=== PATIENT | male | born 1960 | race Caucasian/White ===

== ENCOUNTER 2022-01-25 12:37 | Outpatient (REF) | payer OTHER, SELFPAY ==
[2022-01-25 14:06] LABS: MANUAL DIFF FLAG NO
[2022-01-25 14:14] LABS: Basophils Percent Auto 0.3 % (0-2); Eosinophils Absolute Auto 0.2 X10*3/uL (0.0-0.4); Eosinophils Percent Auto 2.2 % (0-4); Hematocrit 40.8 % (42.0-52.0); Hemoglobin 12.8 g/dl (14.0-18.0); Imm Gran Abs Auto 0.04 X10*3/uL (0.00-0.03); Imm Gran Pct Auto 0.4 % (0.0-0.4); Lymphocytes Absolute Auto 2.5 X10*3/uL (1.2-4.9); Lymphocytes Percent Auto 24.8 % (20-40); Mean Corpuscular HGB Conc 31.4 g/dl (31.0-36.0); Mean Corpuscular Hemoglobin 27.5 pg (27.0-33.0); Mean Corpuscular Volume 87.7 fL (80.0-98.0); Mean Platelet Volume 13.2 fL (9.4-12.4); Monocytes Absolute Auto 0.6 X10*3/uL (0.1-1.2); Monocytes Percent Auto 5.6 % (2-11); Neutrophils Absolute Auto 6.8 x10*3/uL (2.0-8.3); Neutrophils Percent Auto 66.7 % (45-73); Platelet Count 106 X10*3/uL (160-400); Red Blood Count 4.65 X10*6/uL (4.60-5.80); Red Cell Distribution Width 13.2 % (11.0-16.0); White Blood Count 10.3 X10*3/uL (4.8-10.8)
[2022-01-25 14:21] LABS: Estimated Average Glucose 166 mg/dL; Hemoglobin A1c % 7.4 %
[2022-01-25 14:51] LABS: Alanine Aminotransferase 22 U/L (0-40); Albumin Level 4.1 g/dL (3.5-5.0); Alkaline Phosphatase 70 U/L (39-117); Anion Gap 16 (12-20); Aspartate Amino Transferase 13 U/L (5-37); Bilirubin Total 0.3 mg/dL (0.0-1.0); Blood Urea Nitrogen 16 mg/dL (9-16); Calcium 9.1 mg/dL (8.4-10.2); Carbon Dioxide 23 mmol/L (22-29); Chloride 106 mmol/L (96-108); Cholesterol 79 mg/dL; Estimated Glomerular Filt Rate > 60; Glucose Fasting 162 mg/dL (60-99); HDL Cholesterol 36 mg/dL; LDL Cholesterol Calculated 4 mg/dl; Potassium 4.2 mmol/L (3.3-5.1); Sodium 141 mmol/L (135-145); Total Protein 6.4 g/dL (6.5-8.0); Triglycerides 198 mg/dL
[2022-01-25 15:09] LABS: TSH reflex Free T4 1.22 uIU/mL (0.32-4.0)
[2022-01-25 15:10] LABS: Vitamin B12 255 pg/mL (200-900)
[2022-01-30 14:06] LABS: Vitamin D 25-OH, D2 <4 ng/mL; Vitamin D 25-OH, D3 33 ng/mL; Vitamin D 25-OH, Total 33 ng/mL (30-100)
== END 2022-01-25 12:38 | disposition home or self-care (01) ==
LOC: HO.HMGCLDS 12:37
PROVIDERS: PCP Internal Medicine; Visit Provider Internal Medicine
DX: E11.9 Type 2 diabetes mellitus without complications (principal); E66.09 Other obesity due to excess calories; E78.9 Disorder of lipoprotein metabolism, unspecified; F41.1 Generalized anxiety disorder; I10 Essential (primary) hypertension; Z76.89 Persons encountering health services in other specified circumstances
CPT/HCPCS: 36415; 80053; 80061; 82306; 82607; 83036; 84443; 85025

== ENCOUNTER 2022-07-28 08:40 | Outpatient (REF) | payer OTHER, SELFPAY ==
[2022-07-28 11:13] LABS: MANUAL DIFF FLAG NO
[2022-07-28 11:26] LABS: Basophils Percent Auto 0.2 % (0-2); Eosinophils Absolute Auto 0.3 X10*3/uL (0.0-0.4); Eosinophils Percent Auto 3.2 % (0-4); Hematocrit 45.2 % (42.0-52.0); Hemoglobin 14.6 g/dl (14.0-18.0); Imm Gran Abs Auto 0.03 X10*3/uL (0.00-0.03); Imm Gran Pct Auto 0.3 % (0.0-0.4); Lymphocytes Percent Auto 33.3 % (20-40); Mean Corpuscular HGB Conc 32.3 g/dl (31.0-36.0); Mean Corpuscular Hemoglobin 27.9 pg (27.0-33.0); Mean Corpuscular Volume 86.4 fL (80.0-98.0); Mean Platelet Volume 12.6 fL (9.4-12.4); Monocytes Absolute Auto 0.5 X10*3/uL (0.1-1.2); Monocytes Percent Auto 5.3 % (2-11); Neutrophils Absolute Auto 5.2 x10*3/uL (2.0-8.3); Neutrophils Percent Auto 57.7 % (45-73); Platelet Count 206 X10*3/uL (160-400); Red Blood Count 5.23 X10*6/uL (4.60-5.80); Red Cell Distribution Width 15.9 % (11.0-16.0); White Blood Count 9.1 X10*3/uL (4.8-10.8)
[2022-07-28 11:33] LABS: Estimated Average Glucose 146 mg/dL; Hemoglobin A1c % 6.7 %
[2022-07-28 11:46] LABS: Alanine Aminotransferase 23 U/L (0-40); Albumin Level 4.4 g/dL (3.5-5.0); Alkaline Phosphatase 73 U/L (39-117); Anion Gap 15 (12-20); Aspartate Amino Transferase 15 U/L (5-37); Bilirubin Total 0.6 mg/dL (0.0-1.0); Blood Urea Nitrogen 13 mg/dL (9-16); Calcium 9.6 mg/dL (8.4-10.2); Carbon Dioxide 25 mmol/L (22-29); Chloride 103 mmol/L (96-108); Estimated Glomerular Filt Rate > 60; Glucose Random 96 mg/dL (60-115); Potassium 3.9 mmol/L (3.3-5.1); Sodium 139 mmol/L (135-145); Total Protein 6.5 g/dL (6.5-8.0)
== END 2022-07-28 08:41 | disposition home or self-care (01) ==
LOC: HO.HMGCLDS 08:40
PROVIDERS: PCP Internal Medicine; Visit Provider Internal Medicine
DX: I10 Essential (primary) hypertension (principal); F41.1 Generalized anxiety disorder; E11.9 Type 2 diabetes mellitus without complications; E78.9 Disorder of lipoprotein metabolism, unspecified; E66.09 Other obesity due to excess calories
CPT/HCPCS: 36415; 80053; 83036; 85025

== ENCOUNTER → 2022-09-04 07:56 | Outpatient (BNVA) | payer OTHER, MEDICAID, SELFPAY | PROVIDERS: PCP Internal Medicine; Referring Provider Internal Medicine; Visit Provider Internal Medicine | DX: I48.91 Unspecified atrial fibrillation (principal); I10 Essential (primary) hypertension | CPT/HCPCS: 99202 ==

== ENCOUNTER 2022-09-14 08:16 | Outpatient (REF) | payer OTHER, MEDICAID, SELFPAY ==
--- NOTE | ~2022-09-14 | XR_ITS ---
EXAMINATION: XR SHOULDER, RIGHT CLINICAL INFORMATION: Pain. COMPARISON: None available. TECHNIQUE: Four views of the right shoulder. FINDINGS: No acute fractures or subluxation. Moderate productive changes in relation to the AC joint, coracoid process and glenoid. Mild joint space narrowing of the glenohumeral and acromioclavicular joints. Included right-sided ribs and right lung are within normal limits. XR/XR shoulder RT min 2V IMPRESSION: 1. No acute fractures or subluxation. 2. 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
== END 2022-09-14 08:17 | disposition home or self-care (01) ==
LOC: HO.HMGCX 08:16
PROVIDERS: PCP Internal Medicine; Visit Provider Internal Medicine
DX: M25.511 Pain in right shoulder (principal)
CPT/HCPCS: 73030

== ENCOUNTER → 2022-09-22 07:33 | Outpatient (REF) | payer OTHER, MEDICAID, SELFPAY ==
--- NOTE | 2022-09-22 07:37 | HM_ITS ---
Conclusion: 1. Patient was monitored for total period of 3 days and 6 hours 2. Baseline was atrial fibrillation with average heart of 73 beats per minute with good rate control 3. No significant pauses noted 4. Occasional PVCs noted with total burden of 0.7% 5. No patient reported symptoms MTDD
--- NOTE | 2022-09-22 07:37 | CA_ITS ---
Transthoracic Echocardiogram Patient (Last, First, Middle): Mario Baldwin, Gender: Male Date of : 1960 Age: 62 Procedure Date: 09/22/2022 Procedure Type: Transthoracic Echocardiogram Location: OP Height: 177.8 cm Weight: 90.72 kg BSA: 2.09 m2 Heart Rate: bpm BP: 110 / 60 mmHg Link Knitting Machine Operator: TO Referring MD: Albert Wallace MD Symptoms: I48.91 - Unspecified atrial fibrillation Study Quality: Fair ECG Rhythm: Atrial Fibrillation Conclusions: - The left ventricular systolic function is normal. The visually estimated ejection fraction is between 60-65%. - There is moderate septal asymmetric hypertrophy. - Left atrium mild to moderately dilated. - There is mild calcification of the aortic valve. - No obvious valvular pathology seen on this study. - Mild pulmonary hypertension is present. Findings Left Ventricle Normal left ventricular cavity size. There is mildly increased left ventricular wall thickness. The left ventricular systolic function is normal. The visually estimated ejection fraction is between 60-65%. There is no evidence of regional wall motion abnormalities. Diastolic function is indeterminate on the basis of available data. There is moderate septal asymmetric hypertrophy. Right Ventricle Normal right ventricular cavity size and systolic function. Atria Left atrium mild to moderately dilated. The right atrium is normal in size. Aortic Valve There is a normal trileaflet aortic valve. There is mild calcification of the aortic valve. There is no aortic valve stenosis. There is no aortic valve regurgitation. Mitral Valve There is mild anterior mitral leaflet thickening. There is trace mitral valve regurgitation. There is no mitral valve stenosis. Pulmonic Valve There is trace pulmonic valve regurgitation. Tricuspid Valve There is mild tricuspid valve regurgitation. Mild pulmonary hypertension is present. Great Vessels The asc aorta is normal in size. Small plaque is seen in the sino tubular ridge. Venous The inferior vena cava is mildly dilated and collapses greater than 50% with inspiration. Pericardium/Pleural There is no evidence of pericardial effusion. Prior Study Comparison No prior study available for comparison. Recommendations, Care & Conclusions No obvious valvular pathology seen on this study. Measurements 2D Linear Measurements IVSd: 1.42 0.6-0.9/0.6-1.0 cm LVIDd: 4.65 3.9-5.3/4.2-5.9 cm LVIDd Index: 2.22 2.4-3.2/2.2-3.1 cm/m2 LVIDs: 2.90 2.0-3.6 cm LVPWd: 1.16 0.7-1.1 cm LA Diam: 4.40 2.7-3.8/3.0-4.0 cm LAIDs Index: 2.11 1.5-2.3 cm/m2 LV Mass: 288.48 67-162/88-224 g LV Mass Index: 138.03 43-95/49-115 g/m2 LVOT Diam: 2.20 3.0+(-)1.3 cm 2D Systolic Function EF 4C: 67.40 >55% EF 2C: 54.90 >55% EF BiP: 63.20 >55% Mitral Valve MV Pk E: 1.14 MV Decel Time: 196.00 E'Lateral: 14.50 E'Medial: 10.20 E/E' Med: 11.20 E/E' Lat: 7.90 PHT: 57.00 MVA PHT: 3.86 Decel [place]: 5.81 Aortic Valve AoV Pk Chris: 1.53 AoV Pk Grad: 9.00 LVOT LVOT Pk Chris: 0.80 LVOT Mn Chris: 0.55 LVOT VTI: 0.16 LVOT Pk Grad: 3.00 LVOT Mn Grad: 1.00 LVOT Diam: 2.20 LVOT Area: 3.80 Diastolic Function MV Pk E: 1.14 E'Medial: 10.20 E/E' Med: 11.20 E' Laterial: 14.50 E/E' Lat: 7.90 Right Ventricle TAPSE (mm): 18.00 TVS' Chris: 11.90 Tricuspid Valve TR Pk Chris: 2.89 TR Pk Grad: 33.00 RA Press: 8.00 RVSP: 41.00 Great Vessels Aorta Sinus of Valsalva: 3.12 2.0-3.[address] [place]: 2.32 1.7-3.4 cm Ao Asc: 3.50 2.1-3.4 cm Updated in Other Vendor System with Status of Final Albert Wallace MD electronically signed on 09/25/2022 10:14:22 AM with status of Final
== END ==
LOC: HO.CARD 07:33
PROVIDERS: PCP Internal Medicine; Visit Provider Internal Medicine
DX: I48.91 Unspecified atrial fibrillation (principal)
CPT/HCPCS: 93242; 93306

== ENCOUNTER → 2022-10-23 12:46 | Outpatient (BNVA) | payer OTHER, MEDICAID, SELFPAY | PROVIDERS: PCP Internal Medicine; Visit Provider Physician Assistant | DX: M75.81 Other shoulder lesions, right shoulder (principal) | CPT/HCPCS: 20610; J1040 ==

== ENCOUNTER 2022-11-15 07:21 | Outpatient (RCR) | payer OTHER, MEDICAID, SELFPAY ==
[2022-11-15 07:46] VITALS: BP 113/63; PULSE 79; O2SAT 95
--- NOTE | 2022-11-15 13:32 | MHC.PT.EP ---
[facility] [place] Office [place] Office [place] Office [address] [place] [address] [address] [phone] F: [phone] F: [phone] F: [phone] F: [phone] Physical Therapy Plan of Care Date of Evaluation: Date of Surgery: Diagnosis: Rt SHOULDER LESION Assessment: 62 YO MALE REF TO PT W Rt SHOULDER PAIN ONSET APPROX 3 MONTHS AGO, PROGRESSIVE, AFTER LIFTING A HAY BALE INTO HIS HORSE ORDONEZ. THE Pt IS Rt HAND DOMINANT. HE HAS LIMITED ROM IN Rt SH, STRENGTH DEFICITS IN Rt RC/SCAP MM W ATROPHY Rt POST RC, (+) TTP Rt ANT GH AND PARASCAP MM, AND PAIN IN RT SH JT. FUNCTIONALLY, HE HAS DIFFIC SLEEPING, LIFTING > SH HEIGHT FLEX WELL ABD, CARRYING, OR REPETITIVE TASKS REQ INCR UEs EFFORT. HE HAS Rt SH (+) NEER'S AND (+) LEIVA SAAD SIGNS. THE Pt WOULD BENEFIT FROM PT TO ADDRESS THE ABOVE FINDINGS , MONITOR PROGRESS AND SXS, AND DEV A HEP/ SELF-SX MGMT PROGRAM. Frequency and Duration: The patient will be seen 2 x WK x 5 WKS Short Term Goals: *DECREASE Rt SH PAIN TO 2-3/10 W REG ADLs *Pt INDEP SELF-CORRECT POSTURE AND BODY MECH-> FARM TASKS *Pt DISPLAY WFL AROM Rt SH, W (-) NEER'S SIGN Rt SH Delicatessen Clerk Goals: *Pt INDEP HEP PROGR AND SELF-SX MGMT STRATEGIES FOR Rt SH INJURY Pt RESUME REG ADLs TO RAMESH EVIDENT IN IMPROVED SPADI ( AT EVAL 89 /130 ) *Pt INCR Rt POST RC/ SCAP STRENGTH BY AT LEAST 1 GRADE Treatment Plan: Modalities to reduce pain, spasms and effusion. Manual therapy to restore motion and function. Therapeutic exercise to improve strength and flexibility. Neuromuscular re-education for posture and balance. Therapeutic activities to return to functional activities of daily living. Electronically signed by: RENEE ROSAS,PT Please sign and return to therapist. Thank you for your referral.
--- NOTE | 2022-11-30 07:45 | MHC.PT.DC ---
[facility] [place] Office [place] Office [place] Office [address] [facility] [phone] F: [phone] F: [phone] F: [phone] F: [phone] Physical Therapy Discharge Report Diagnosis: Rt SHOULDER LESION Date of Surgery: Date of Evaluation: 11/15/22 Date of Discharge: 11/30/22 Treatments to Date: 1 Cancellations to Date: 1 No Shows to Date: 3 Discharge Status: Patient Elected to Stop Visit Non-compliance Discharge Summary: THE Pt APPEARED TO BE A GOOD CANDIDATE FOR SKILLED PT AT THE [facility], HOWEVER, HE DID NOT ATTEND OR CANCEL ANY FOLLOWING SCHED APPTS AND IS THUS D/C THIS DATE PER OUT PT DEPT ATTENDANCE POLICY. THE Pt DID NOT RESPOND TO ATTEMPTS TO CONTACT HIM. Electronically signed by: RENEE ROSAS,PT Please sign and return to therapist. Thank you for your referral.
== END 2022-11-30 07:45 | disposition home or self-care (01) ==
LOC: HO.PT 07:21
PROVIDERS: PCP Internal Medicine; Visit Provider Physician Assistant
DX: M75.81 Other shoulder lesions, right shoulder (principal)
CPT/HCPCS: 97162; 97530

== ENCOUNTER 2022-11-22 08:16 | Outpatient (AMB) | payer OTHER, MEDICAID, SELFPAY ==
[2022-11-22 08:21] VITALS: BP 112/66; PULSE 85; O2SAT 97; BMI 28.4
--- NOTE | 2022-11-22 08:21 | MHC.PC.OV ---
Vital Signs 11/22/22 08:21 Height 5 ft 9 in Weight 192 lb BMI 28.4 BP 112/66 Blood Pressure Location Rt brachial Position Sitting Pulse 85 Pulse Source Pulse Oximeter Pulse Oximetry (%) 97 Oxygen Delivery Method Room Air Intake Visit Reasons: 3 month follow up HTN Allergies varenicline [From Chantix] Allergy (Intermediate, Verified 11/22/22 08:21) mood swings asprin Allergy (Severe, Uncoded 10/23/22 13:11) Nausea Medication List - Last Reconciled 11/22/22 by Mali Garcia MD albuterol sulfate 0.63 mg (3 mL) inhalation QID PRN 30 days amlodipine 10 mg PO DAILY apixaban (Eliquis) 5 mg PO BID 90 days buspirone 15 mg PO QID diclofenac sodium 75 mg PO BID 10 days hydrochlorothiazide 25 mg PO DAILY 90 days lisinopril 30 mg PO DAILY 90 days metformin 1,000 mg PO BID 90 days rosuvastatin 10 mg PO DAILY 90 days trazodone mg PO Tobacco use date assessed: 11/22/22 Dental Screening Dental Screen Date: 11/22/22 Did you have a dental visit in the last 12 months?: No Did you have a dental problem in the last 6 months where you did not have access to dental care?: No Was dental information given to patient?: No HPI 3 month follow up HTN HPI Details Patient is a 62-year-old gentleman came in today for his regular follow-up appoint he is now seeing director of safety and security is appointment is coming up December 05. Patient has developed atrial fibrillation he is taking Eliquis Blood pressure is stable he is to continue amlodipine 10 mg along with hydrochlorothiazide 25 mg and lisinopril 30 mg. Diabetes mellitus: Hemoglobin A1c is 5.4 today patient is on metformin 1 g b.i.d.. Lipid disorder: Continue rosuvastatin 10 mg no side effects patient is to do labs for next visit Difficulty sleeping at night, patient is on trazodone 100 mg which is helping him Anxiety is stable with buspirone 15 mg up to 3 times a day. Right shoulder has improved patient has seen registration scheduling specialist was given cortisone injection and has gone through physical therapy, he is to continue physical therapy at home. Continue to smoke he is wheezing today patient says that he has updraft machine at home. I also have added maintenance inhaler today patient has taken Symbicort in the past but it was too expensive for him to afford as his insurance company did not cover it. I have sent a different inhaler this time. He is to start taking that q.12 and rinse his mouth after Follow-up 3 months [facility] Medical History Diabetes type 2, controlled Hypertension, essential Surgical History History of hip surgery Family History Mother Cancer Father Cancer Social History Housing: House Patient Tobacco Use Status: Current everyday Tobacco user e-Cigarette/Vaping Use: Never Used service: No Current occupational status: retired Current occupation: right hand dominant Cognitive needs: No Hearing needs: No Vision needs: Yes Questionnaire Thrive Questionnaire Date Thrive assessed: 01/27/22 AUDIT C Alcohol Use Questionnaire (AUDIT-C) 1. How often do you have a drink containing alcohol?: Monthly or less 2. How many drinks containing alcohol do you have on a typical day when you are drinking?: 1 or 2 3. How often do you have six or more drinks on one occasion?: Never Total Score: 1 Score Reviewed/Action Taken: Yes KEYANA-7 AMB Questionnaire KEYANA-7 Date KEYANA - 7 assessed: 01/27/22 Source: Developed by Drs. Derick Thacker, Katie Gibson, David Valenzuela and colleagues, with an educational cristino from [employer]. Review of Systems Const Denies chills and Denies fever(s) ENT Denies epistaxis and Denies nasal discharge Card Denies chest pain Resp Denies hemoptysis GI Denies diarrhea and Denies nausea Skin/Breast Denies rash Neuro Reports no additional complaints Psych Reports no additional complaints Endo Reports no additional complaints Physical exam (Primary Care) Vital Signs: Last Vital Signs Pulse 85 11/22/22 08:21 BP 112/66 11/22/22 08:21 Pulse Ox 97 11/22/22 08:21 Oxygen Delivery Method Room Air 11/22/22 08:21 BMI result Body Mass Index 28.4 Tobacco/Smoking Status: Tobacco use Status Tobacco use date assessed 11/22/22 11/22/22 08:23 Patient Tobacco Use Status Current everyday Tobacco 11/22/22 08:23 e-Cigarette/Vaping Use Never Used 11/22/22 08:23 Thrive Assessment: Date of Thrive Assessment Date Thrive assessed 01/27/22 11/22/22 08:23 Const General: cooperative, comfortable and no acute distress Orientation/consciousness: patient oriented x3 HENMT Head: Yes normocephalic Eyes General: appearance normal, both eyes and all related structures Neck Neck: Yes supple Resp Other: Patient is wheezing bilateral, and coughing with deep breath however able to speak in full sentences. And is in no respiratory distress Effort & Inspection: no stridor Cardio Other: Irregularly irregular Heart sounds: S1 normal heart sound present and S2 normal heart sound present Skin General skin exam: turgor normal Neuro General: patient oriented x3, tone normal and moves all extremities Extrem Right lower extremity: no edema Left lower extremity: no edema Assessment and Plan Assessment & Plan (1) Hypertension, essential: Code(s): I10 - Essential (primary) hypertension (2) Diabetes type 2, controlled: Code(s): E11.9 - Type 2 diabetes mellitus without complications (3) Obesity due to excess calories: Code(s): E66.09 - Other obesity due to excess calories (4) Shoulder pain, right: Code(s): M25.511 - Pain in right shoulder (5) Atrial fibrillation: Code(s): I48.91 - Unspecified atrial fibrillation (6) COPD (chronic obstructive pulmonary disease): Code(s): J44.9 - Chronic obstructive pulmonary disease, unspecified (7) Tobacco use disorder: Code(s): F17.200 - Nicotine dependence, unspecified, uncomplicated Plan Patient is a 62-year-old gentleman came in today for his regular follow-up appoint he is now seeing director of safety and security is appointment is coming up December 05. Patient has developed atrial fibrillation he is taking Eliquis Blood pressure is stable he is to continue amlodipine 10 mg along with hydrochlorothiazide 25 mg and lisinopril 30 mg. Diabetes mellitus: Hemoglobin A1c is 5.4 today patient is on metformin 1 g b.i.d.. Lipid disorder: Continue rosuvastatin 10 mg no side effects patient is to do labs for next visit Difficulty sleeping at night, patient is on trazodone 100 mg which is helping him Anxiety is stable with buspirone 15 mg up to 3 times a day. Right shoulder has improved patient has seen registration scheduling specialist was given cortisone injection and has gone through physical therapy, he is to continue physical therapy at home. Continue to smoke he is wheezing today patient says that he has updraft machine at home. I also have added maintenance inhaler today patient has taken Symbicort in the past but it was too expensive for him to afford as his insurance company did not cover it. I have sent a different inhaler this time. He is to start taking that q.12 and rinse his mouth after Follow-up 3 months Orders: Orders Hemoglobin A1c Today E11.9 - Type 2 diabetes mellitus without complications, E66.09 - Other obesity due to excess calories, F17.200 - Nicotine dependence, unspecified, uncomplicated, I10 - Essential (primary) hypertension, I48.91 - Unspecified atrial fibrillation, J44.9 - Chronic obstructive pulmonary disease, unspecified, M25.511 - Pain in right shoulder Complete Blood Count Auto Diff Today E11.9 - Type 2 diabetes mellitus without complications, E66.09 - Other obesity due to excess calories, F17.200 - Nicotine dependence, unspecified, uncomplicated, I10 - Essential (primary) hypertension, I48.91 - Unspecified atrial fibrillation, J44.9 - Chronic obstructive pulmonary disease, unspecified, M25.511 - Pain in right shoulder Comprehensive Met. Panel Today E11.9 - Type 2 diabetes mellitus without complications, E66.09 - Other obesity due to excess calories, F17.200 - Nicotine dependence, unspecified, uncomplicated, I10 - Essential (primary) hypertension, I48.91 - Unspecified atrial fibrillation, J44.9 - Chronic obstructive pulmonary disease, unspecified, M25.511 - Pain in right shoulder LDL Cholesterol Direct Today E11.9 - Type 2 diabetes mellitus without complications, E66.09 - Other obesity due to excess calories, F17.200 - Nicotine dependence, unspecified, uncomplicated, I10 - Essential (primary) hypertension, I48.91 - Unspecified atrial fibrillation, J44.9 - Chronic obstructive pulmonary disease, unspecified, M25.511 - Pain in right shoulder Medications: New fluticasone propion-salmeterol 232-14 mcg/actuation (AirDuo RespiClick) 1 inh inhalation Q12H 1 ea 0RF Changed From trazodone PO To trazodone 100 mg PO BEDTIME 90 tabs 0RF 90 days Refilled albuterol sulfate 0.63 mg (3 mL) inhalation QID PRN 90 mL 1RF shortness of breath or wheezing 30 days Discontinued diclofenac sodium Discontinued Reason: Doctor's Order 75 mg PO BID 10 days 20 tabs 0RF pain Coding Level of Care Code Est Pt Level 4 (52172) Diagnoses Hypertension, essential I10 Diabetes type 2, controlled E11.9 Obesity due to excess calories E66.09 Shoulder pain, right M25.511 Atrial fibrillation I48.91 COPD (chronic obstructive pulmonary disease) J44.9 Tobacco use disorder F17.200
== END 2022-11-22 08:46 | disposition home or self-care (01) ==
PROVIDERS: Visit Provider Internal Medicine
DX: I10 Essential (primary) hypertension (principal); E11.9 Type 2 diabetes mellitus without complications; E66.09 Other obesity due to excess calories; Z68.28 Body mass index [BMI] 28.0-28.9, adult; M25.511 Pain in right shoulder; I48.91 Unspecified atrial fibrillation; J44.9 Chronic obstructive pulmonary disease, unspecified; F17.200 Nicotine dependence, unspecified, uncomplicated
CPT/HCPCS: 83036; 99214

== ENCOUNTER 2022-12-05 11:58 | Outpatient (REF) | payer OTHER, MEDICAID, SELFPAY ==
[2022-12-05 13:26] LABS: MANUAL DIFF FLAG NO
[2022-12-05 13:42] LABS: Basophils Percent Auto 0.1 % (0-2); Eosinophils Absolute Auto 0.2 X10*3/uL (0.0-0.4); Eosinophils Percent Auto 1.9 % (0-4); Hematocrit 41.6 % (42.0-52.0); Hemoglobin 13.5 g/dl (14.0-18.0); Imm Gran Abs Auto 0.04 X10*3/uL (0.00-0.03); Imm Gran Pct Auto 0.4 % (0.0-0.4); Lymphocytes Absolute Auto 1.6 X10*3/uL (1.2-4.9); Lymphocytes Percent Auto 15.3 % (20-40); Mean Corpuscular HGB Conc 32.5 g/dl (31.0-36.0); Mean Corpuscular Hemoglobin 30.1 pg (27.0-33.0); Mean Corpuscular Volume 92.9 fL (80.0-98.0); Mean Platelet Volume 12.9 fL (9.4-12.4); Monocytes Absolute Auto 0.8 X10*3/uL (0.1-1.2); Neutrophils Absolute Auto 7.5 x10*3/uL (2.0-8.3); Neutrophils Percent Auto 74.3 % (45-73); Platelet Count 154 X10*3/uL (160-400); Red Blood Count 4.48 X10*6/uL (4.60-5.80); Red Cell Distribution Width 14.3 % (11.0-16.0); White Blood Count 10.1 X10*3/uL (4.8-10.8)
[2022-12-05 13:52] LABS: Estimated Average Glucose 114 mg/dL; Hemoglobin A1C 136.4831 umol/L; Hemoglobin A1c % 5.6 %
[2022-12-05 13:59] LABS: Alanine Aminotransferase 21 U/L (0-40); Alkaline Phosphatase 83 U/L (39-117); Anion Gap 18 (12-20); Aspartate Amino Transferase 16 U/L (5-37); Bilirubin Total 0.4 mg/dL (0.0-1.0); Blood Urea Nitrogen 12 mg/dL (9-16); Calcium 10.1 mg/dL (8.4-10.2); Carbon Dioxide 26 mmol/L (22-29); Chloride 101 mmol/L (96-108); Estimated Glomerular Filt Rate > 60; Glucose Random 158 mg/dL (60-115); Potassium 3.8 mmol/L (3.3-5.1); Sodium 141 mmol/L (135-145); Total Protein 6.9 g/dL (6.5-8.0)
[2022-12-08 20:14] LABS: LDL Cholesterol Direct 29 mg/dL (<100)
== END 2022-12-05 11:59 | disposition home or self-care (01) ==
LOC: HO.HMGCLDS 11:58
PROVIDERS: PCP Internal Medicine; Visit Provider Internal Medicine
DX: E11.9 Type 2 diabetes mellitus without complications (principal); I10 Essential (primary) hypertension; M25.511 Pain in right shoulder; I48.91 Unspecified atrial fibrillation; F17.200 Nicotine dependence, unspecified, uncomplicated; J44.9 Chronic obstructive pulmonary disease, unspecified; E66.09 Other obesity due to excess calories
CPT/HCPCS: 36415; 80053; 83036; 83721; 85025; 99212

== ENCOUNTER 2022-12-05 13:18 | Outpatient (AMB) | payer OTHER, SELFPAY ==
--- NOTE | 2022-12-05 13:30 | MHC.OFFVIS ---
Intake Vital Signs 12/05/22 13:37 Height 5 ft 9 in Weight 194 lb 0.108 oz BMI 28.6 BP 122/76 Pulse 95 Pulse Oximetry (%) 97 Intake Visit Reasons: R/S follow up Organizational Effectiveness Consultant Required: No Allergies varenicline [From Chantix] Allergy (Intermediate, Verified 12/05/22 13:40) mood swings asprin Allergy (Severe, Uncoded 12/05/22 13:40) Nausea Medication List - Last Reconciled 12/05/22 by Albert Wallace MD albuterol sulfate 0.63 mg (3 mL) inhalation QID PRN 30 days amlodipine 10 mg PO DAILY apixaban (Eliquis) 5 mg PO BID 90 days buspirone 15 mg PO QID fluticasone propion-salmeterol 232-14 mcg/actuation (AirDuo RespiClick) 1 inh inhalation Q12H hydrochlorothiazide 25 mg PO DAILY 90 days lisinopril 30 mg PO DAILY 90 days metformin 1,000 mg PO BID 90 days rosuvastatin 10 mg PO DAILY 90 days trazodone 100 mg PO BEDTIME 90 days HPI HPI Comments History of Present Illness Details Mario returns for follow-up. Recently seen in consultation regarding atrial fibrillation. It seems that he underwent an EKG recently with his PCP that showed atrial fibrillation. He does not have any symptoms like angina or shortness of breath or palpitations or in fact anything cardiac related. He states he used to weigh almost 300 lb but then but changing his diet around he lost almost 100 lb or so. Current weight is 199 lb. Otherwise, multiple comorbidities including diabetes, hypertension, obstructive sleep apnea. Also smoker. He states he does use CPAP. Overall, feels okay. No specific cardiac concerns. [facility] Medical History Diabetes type 2, controlled Hypertension, essential Surgical History History of hip surgery Family History Mother Cancer Father Cancer Social History Housing: House Patient Tobacco Use Status: Current everyday Tobacco user e-Cigarette/Vaping Use: Never Used service: No Current occupational status: retired Current occupation: right hand dominant Cognitive needs: No Hearing needs: No Vision needs: Yes Review of Systems Const Denies chills, Denies daytime sleepiness, Denies fatigue, Denies fever(s), Denies frequent falls, Denies night sweats, Denies snoring, Denies weakness, Denies weight gain and Denies weight loss Eyes Denies loss of vision ENT Denies dizziness and Denies hearing loss Card Denies chest pain, Denies chest pain with activity, Denies syncope, Denies rapid heart rate, Denies edema, Denies claudication, Denies leg edema, Denies lightheadedness, Denies palpitations, Denies dyspnea, Denies dyspnea on exertion and Denies orthopnea Resp Denies cough, Denies excessive phlegm production, Denies dyspnea, Denies dyspnea on exertion, Denies snoring and Denies wheezing GI Denies abdominal pain, Denies hematochezia, Denies change in bowel habits, Denies change in stool character, Denies heartburn, Denies nausea and Denies vomiting Denies hematuria, Denies dysuria and Denies urinary frequency Musc Denies arthralgias, Denies muscle weakness, Denies numbness and Denies tingling Skin/Breast Denies nail changes and Denies rash Neuro Denies Abnormal speech present, Denies dizziness, Denies syncope, Denies frequent falls, Denies loss of vision, Denies memory loss, Denies numbness, Denies tingling and Denies weakness Psych Denies depression and Denies memory loss Endo Denies fatigue and Denies palpitations Aller/Immun Denies wheezing Physical Exam Vital Signs: Last Vital Signs Pulse 95 12/05/22 13:37 BP 122/76 12/05/22 13:37 Pulse Ox 97 12/05/22 13:37 BMI result Body Mass Index 28.6 Const General: comfortable and no acute distress Orientation/consciousness: patient oriented x3 HEENT Other: Unremarkable Head: Yes normal to inspection Neck Neck: Yes normal visual inspection Chest Chest palpation & inspection: normal inspection of the chest Resp Auscultation: clear to auscultation bilaterally Cardio Palpation: normal PMI Heart sounds: S1 normal heart sound present, S2 normal heart sound present, no gallops, no murmurs and no rubs GI Palpation (GI): Soft to palpation Back/Spine/Pelvis Other: unremarkable Skin General skin exam: no rashes or lesions noted Neuro General: patient oriented x3 Speech: No Abnormal speech present Extrem General: Yes normal to inspection Psych Mental Status: mental status grossly normal Assessment & Plan Assessment & Plan (1) New onset atrial fibrillation: Code(s): I48.91 - Unspecified atrial fibrillation Plan In the recent EKG from primary care physician's office, underlying rhythm is atrial fibrillation at a rate of 63/Min. Cannot exclude old inferior infarct. Prior EKG from [facility] from 2020 shows sinus rhythm. Echocardiogram with LVEF of 60-65%. Moderate septal hypertrophy. [id number] left atrium. Mild aortic valve calcification, mild pulmonary hypertension. In the Holter monitor, underlying rhythm is atrial fibrillation with an average rate of 73/Min. Good rate control. Findings discussed with patient. At his age, preferable that he remains sinus rhythm. Pros and cons of cardioversion discussed. Issues of just leaving atrial fibrillation and at rest also discussed as it may lead to future structural cardiac issues and additional symptoms like heart failure. After discussion, agreed that he will undergo elective cardioversion. He has been taking anticoagulation without any interruption. We will schedule the procedure near future. If he converts to sinus, then potentially can put him on flecainide and get a coronary CTA to ensure there is nothing significant from that standpoint. Coding Level of Care Code Est Pt Level 4 (90546) Diagnoses New onset atrial fibrillation I48.91
[2022-12-05 13:37] VITALS: BP 122/76; PULSE 95; O2SAT 97; BMI 28.6
== END 2022-12-05 14:01 | disposition home or self-care (01) ==
PROVIDERS: PCP Internal Medicine; Visit Provider Internal Medicine
DX: I48.91 Unspecified atrial fibrillation (principal)
CPT/HCPCS: 99214

== ENCOUNTER 2022-12-28 10:02 | Day surgery (SDC) | payer OTHER, MEDICAID, SELFPAY ==
[2022-12-26 15:08] VITALS: BMI 28.6
--- NOTE | 2022-12-27 09:40 | P.CONAN_ITS ---
Documented by User: Charlotte Thomas NP 12/27/22 09:44 HPI - Anesthesia Eval Consult details Narrative: 62yo M for Cardioversion Eliquis for afib PMFSH Active Problems Active Problems: All Active Problems (Updated 11/22/22 @ 08:44 by Mali Garcia MD) Tobacco use disorder (Acute) Atrial fibrillation (Acute) Tendinitis of right rotator cuff (Acute) Shoulder pain, right (Acute) Hypertension, essential (Acute) Diabetes type 2, controlled (Acute) New onset atrial fibrillation (Acute) Encounter for general adult medical examination with abnormal findings (Acute) Anemia (Acute) Thrombocytopenia (Acute) COPD (chronic obstructive pulmonary disease) (Acute) Right hip pain (Acute) Obesity due to excess calories (Acute) Lipid disorder (Acute) Anxiety, generalized (Acute) Establishing care with new doctor, encounter for (Acute) Past Medical History Medical History Anemia Arthritis Atrial fibrillation COPD (chronic obstructive pulmonary disease) Diabetes type 2, controlled Hypertension, essential Thrombocytopenia Tobacco use disorder Family History Family History Mother Cancer Father Cancer Surgical History Surgical History History of hip surgery Social History Social History Housing: House Patient Tobacco Use Status: Current everyday Tobacco user Tobacco use type: Cigarette Cigarettes Per Day: 6 e-Cigarette/Vaping Use: Never Used Use of substances other than those prescribed or required for medical reasons: No Are you DNR?: No Advance Directives: No Advance Directives Information Provided: Yes service: No Current occupational status: retired Current occupation: right hand dominant Cognitive needs: No Hearing needs: No Vision needs: Yes Meds Allergies Allergy/AdvReac Type Severity Reaction Status Date / Time varenicline [From Chantix] Allergy Intermediate mood swings Verified 12/28/22 10 :50 asprin Allergy Severe Nausea Uncoded 12/05/22 13:40 Home Medications Medication Instructions Recorded Confirmed Last Taken Type buspirone 15 mg tablet 15 mg PO QID 10/23/22 12/28/22 Unknown History Exam Exam Date and Time: December 27, 2022 0940 Height,Weight and Vital Signs: Height 5 ft 9 in Weight 87.997 kg Pertinent Lab Results Pertinent Lab Results: Laboratory Tests 12/05/22 12/05/22 12:05 12:05 WBC 10.1 Hgb 13.5 L Hct 41.6 L Plt Count 154 L D Sodium 141 Potassium 3.8 Chloride 101 Carbon Dioxide 26 BUN 12 Creatinine 0.69 Narrative Narrative: ECHO 09/2022 Conclusions: - The left ventricular systolic function is normal.? The visually estimated ejection fraction is between 60-65%. ? - There is moderate septal asymmetric hypertrophy. ? - Left atrium mild to moderately dilated.? - There is mild calcification of the aortic valve. ? - No obvious valvular pathology seen on this study.? - Mild pulmonary hypertension is present.? Holter 09/2022 Conclusion: 1. Patient was monitored for total period of 3 days and 6 hours 2. Baseline was atrial fibrillation with average heart of 73 beats per minute with good rate control 3.? No significant pauses noted 4. Occasional PVCs noted with total burden of 0.7% 5. No patient reported symptoms? Assessment and Plan Assessment Anesthesia Assessment: Chart Reviewed Documented by User: Alpa Guillen MD 12/28/22 11:28 PMFSH Past Medical History Medical History Anemia Arthritis Atrial fibrillation COPD (chronic obstructive pulmonary disease) Diabetes type 2, controlled Hypertension, essential Thrombocytopenia Tobacco use disorder Family History Family History Mother Cancer Father Cancer Family history of problems with anesthesia: No Surgical History Surgical History History of hip surgery History of Problems with Anesthesia: No Social History Social History Housing: House Patient Tobacco Use Status: Current everyday Tobacco user Tobacco use type: Cigarette Cigarettes Per Day: 6 e-Cigarette/Vaping Use: Never Used Use of substances other than those prescribed or required for medical reasons: No Are you DNR?: No Advance Directives: No Advance Directives Information Provided: Yes service: No Current occupational status: retired Current occupation: right hand dominant Cognitive needs: No Hearing needs: No Vision needs: Yes Meds Allergies Allergy/AdvReac Type Severity Reaction Status Date / Time varenicline [From Chantix] Allergy Intermediate mood swings Verified 12/28/22 10:50 asprin Allergy Severe Nausea Uncoded 12/05/22 13:40 Home Medications Medication Instructions Recorded Confirmed Last Taken Type buspirone 15 mg tablet 15 mg PO QID 10/23/22 12/28/22 Unknown History Exam Airway Mallampati Class: II TM Dist: >3cm Neck ROM: Full Heart: afib Lungs: wheezing , received resp treatment Assessment and Plan Assessment Anesthesia Assessment: Anesthesia Plan Discussed Final Anesthetic Review Family History of Problems with Anesthesia: No History of Problems with Anesthesia: No NPO: Yes ASA Class: III and Emergency Final Preanesthetic Review: Meds/Allgs Chart Reviewed, Consent Obtained/Reviewed and Anes Risks/Benef Reviewed Patient Risk: Low Procedure Risk: Low Anesthetic Plan Anesthetic Plan: MAC: Disposition: Standard PACU
[2022-12-28] MEDS: Albuterol Sulfate (0.083%) 2.5 MG/3 ML VIAL.NEB INHALE (11:08)
[2022-12-28 11:09] VITALS: PULSE 77; RESP 15; O2SAT 99
[2022-12-28 11:11] VITALS: BP 128/70; PULSE 66; RESP 18; TEMP 36.9; O2SAT 95
[2022-12-28] MEDS: Lactated Ringers 1,000 ML 100 ML IVCONT (11:13)
[2022-12-28 11:21] LABS: Glucose, Whole Blood 122 mg/dL (60-115)
--- NOTE | 2022-12-28 12:19 | MHC.SHP ---
Pre-Procedural Eval Section A Date of Service: 12/28/22 The patient is an INPATIENT: No The History & Physical has been completed within 30 days and I have reviewed it.: Yes Section B Chief Complaint: Unspecified atrial fibrillation Allergies: Allergies Allergy/AdvReac Type Severity Reaction Status Date / Time varenicline [From Chantix] Allergy Intermediate mood swings Verified 12/28/22 10:50 asprin Allergy Severe Nausea Uncoded 12/05/22 13:40 Plan I have reviewed the history and physical and performed a pertinent physical examination on my patient. No changes have occurred unless specified. Time Spent With Patient Time: Total time managing care of this patient today ____ minutes.
--- NOTE | 2022-12-28 12:27 | ECG_ITS ---
Test Reason : postop Blood Pressure : / mmHG Vent. Rate : 079 BPM Atrial Rate : 079 BPM P-R Int : 242 ms QRS Dur : 096 ms QT Int : 392 ms P-R-T Axes : 089 -43 060 degrees QTc Int : 449 ms Poor data quality, interpretation may be adversely affected Sinus rhythm with marked sinus arrhythmia with 1st degree A-V block Left axis deviation Anterior infarct , age undetermined Abnormal ECG No previous ECGs available Referred By: Albert Wallace Electronically Signed By:JAIME WOMACK
[2022-12-28 12:30] VITALS: BP 118/68; PULSE 84; RESP 17; TEMP 36.9; O2SAT 98
--- NOTE | 2022-12-28 12:30 | HO.CARDIVERS ---
Cardioversion Procedure Note Cardioversion Date of Procedure: 12/28/2022 Ordering Provider: Performing Provider: same Indication for Procedure: Atrial fibrillation Pre-Op Diagnosis: Atrial fibrillation Post-Op Diagnosis: Sinus rhythm GENIE findings (if GENIE Performed): No History: See office consultation Consent: Informed consent obtained. Procedure: After informed consent was obtained, patient was taken to the PACU. The patient was then positioned appropriately. The cardioversion pads were placed in anteroposterior position. Once under anesthesia, 120 joules of synchronized shock was administered. The rhythm converted from atrial fibrillation to sinus rhythm. Patient remained in sinus rhythm after the end of procedure. Complications: None. Impression: Successful cardioversion from atrial fibrillation to sinus rhythm. May give 1 dose of Flecainide 50 mg now and metoprolol 25 mg PO. Follow up will be arranged.
[2022-12-28 12:45] VITALS: BP 137/68; PULSE 78; RESP 16; TEMP 36.9; O2SAT 96
== END 2022-12-28 13:03 | disposition home or self-care (01) ==
PROVIDERS: PCP Internal Medicine; Visit Provider Internal Medicine
PROC: 5A2204Z Restoration of Cardiac Rhythm, Single (ICD-10-PCS; principal; 2022-12-28 12:00)
DX: I48.91 Unspecified atrial fibrillation (principal); I10 Essential (primary) hypertension; E11.9 Type 2 diabetes mellitus without complications; G47.33 Obstructive sleep apnea (adult) (pediatric); Z79.01 Long term (current) use of anticoagulants; Z79.899 Other long term (current) drug therapy; Z79.84 Long term (current) use of oral hypoglycemic drugs; Z99.89 Dependence on other enabling machines and devices; Z88.8 Allergy status to other drugs, medicaments and biological substances; F17.210 Nicotine dependence, cigarettes, uncomplicated
CPT/HCPCS: 82947; 92960; 93005; 94640; J2371

== ENCOUNTER → 2022-12-28 10:02 | Outpatient (BNV) | payer OTHER, MEDICAID, SELFPAY | PROVIDERS: PCP Internal Medicine; Visit Provider Internal Medicine | DX: I48.91 Unspecified atrial fibrillation (principal) | CPT/HCPCS: 92960 ==

== ENCOUNTER → 2023-01-02 08:04 | Outpatient (REF) | payer OTHER, MEDICAID, SELFPAY ==
--- NOTE | 2023-01-02 08:07 | HM_ITS ---
* Total monitoring time about 1 day and 8 hours. * Underlying rhythm is sinus. Average ventricular rate 81/Min. Range 72 to 113/Min. * Frequent supraventricular ectopy with a burden of 2.4%. * Rare ventricular ectopy. * Mobitz type 1 second-degree block as well as transient complete heart block during sleep hours. Possibly some blocked PACs as well. * No patient markers or events in diary. MTDD
== END ==
LOC: HO.CARD 08:04
PROVIDERS: PCP Internal Medicine; Visit Provider Internal Medicine
DX: I48.91 Unspecified atrial fibrillation (principal)
CPT/HCPCS: 93242

== ENCOUNTER → 2023-01-02 08:07 | Outpatient (BNV) | payer OTHER, MEDICAID, SELFPAY | PROVIDERS: PCP Internal Medicine; Visit Provider Internal Medicine | DX: I47.1 Supraventricular tachycardia (principal) | CPT/HCPCS: 93244 ==

== ENCOUNTER 2023-01-04 08:10 | Outpatient (AMB) | payer OTHER, MEDICAID, SELFPAY ==
--- NOTE | 2023-01-04 09:06 | AM.OFFVISNUR ---
Intake Intake Visit Reasons: EKG - post cardioversion per HS Intake Note: Pt here for f/up EKG. H/O afib. Feels good. No complaints. 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 Wallace Nursing Note EKG completed, EKG auto-reading sinus rhythm w PACs at [address] Wallace's desk for review and signature. Pt had holter removed this AM, also. Office Procedures EKG 22085-[id number], Complete Coding Level of Care Code Est Pt Level 1 (28940) Diagnoses CPT Codes EKG - CPT: 44904-[id number], Complete ([id number]) Time Spent (min) 20 Comment EKG, Medication Reconciliation, Documentation, Education
== END 2023-01-04 09:10 | disposition home or self-care (01) ==
PROVIDERS: PCP Internal Medicine; Referring Provider Internal Medicine; Visit Provider Internal Medicine
DX: I49.1 Atrial premature depolarization (principal); R94.31 Abnormal electrocardiogram [ECG] [EKG]
CPT/HCPCS: 93010

== ENCOUNTER → 2023-01-04 08:10 | Outpatient (BNVA) | payer OTHER, MEDICAID, SELFPAY | PROVIDERS: PCP Internal Medicine; Referring Provider Internal Medicine; Visit Provider Internal Medicine | DX: I49.1 Atrial premature depolarization (principal); Z98.890 Other specified postprocedural states | CPT/HCPCS: 93005 ==

== ENCOUNTER 2023-02-15 08:26 | Outpatient (AMB) | payer OTHER, MEDICAID, SELFPAY ==
--- NOTE | 2023-02-15 10:19 | A.OFFPC_ITS ---
Intake Visit Reasons: Discuss Smoking ~ Allergies varenicline [From Chantix] Allergy (Intermediate, Verified 02/15/23 10:25) mood swings asprin Allergy (Severe, Uncoded 12/05/22 13:40) Nausea Medication List - Last Reconciled 02/15/23 by Mali Garcia MD albuterol sulfate 0.63 mg (3 mL) inhalation QID PRN 30 days albuterol sulfate 90 mcg/actuation (ProAir HFA) 1 inh inhalation QID PRN 30 days amlodipine 10 mg PO DAILY apixaban (Eliquis) 5 mg PO BID 90 days buspirone 15 mg PO QID fluticasone propion-salmeterol 232-14 mcg/actuation (AirDuo RespiClick) 1 inh inhalation Q12H hydrochlorothiazide 25 mg PO DAILY 90 days lisinopril 30 mg PO DAILY 90 days metformin 1,000 mg PO BID 90 days metoprolol succinate ER (Toprol XL) 25 mg PO DAILY rosuvastatin 10 mg PO DAILY 90 days trazodone 200 mg (2 x 100 mg) PO BEDTIME 90 days Tobacco use date assessed: 02/15/23 Dental Screening Dental Screen Date: 02/15/23 Did you have a dental visit in the last 12 months?: No Did you have a dental problem in the last 6 months where you did not have access to dental care?: No Was dental information given to patient?: Patient declined HPI Discuss Smoking ~ HPI Details This is a tele medicine visit to talk about smoking habit Patient has been smoking half a pack per day he has been smoking for years. He has tried Chantix in the past which did not help him. We will be starting him on Nicoderm patch 21 mg, patient is aware that once he put the patch on he is not to smoke. His is also smoking she is my patient I will be sending patches for her as well it is highly important that both of them should stop together as it will be difficult if 1 partner is smoking in the house. Patient have appointment coming up for his regular follow-up in few days he will keep that appointment. [facility] Medical History Arthritis Tobacco use disorder Atrial fibrillation Anemia Thrombocytopenia COPD (chronic obstructive pulmonary disease) Diabetes type 2, controlled Hypertension, essential Surgical History History of hip surgery Family History Mother Cancer Father Cancer Social History Housing: House Patient Tobacco Use Status: Current everyday Tobacco user Tobacco use type: Cigarette Cigarettes Per Day: 6 e-Cigarette/Vaping Use: Never Used service: No Current occupational status: retired Current occupation: right hand dominant Cognitive needs: No Hearing needs: No Vision needs: Yes Questionnaire Thrive Questionnaire Date Thrive assessed: 01/27/22 AUDIT C Alcohol Use Questionnaire (AUDIT-C) 1. How often do you have a drink containing alcohol?: Monthly or less 2. How many drinks containing alcohol do you have on a typical day when you are drinking?: 1 or 2 3. How often do you have six or more drinks on one occasion?: Never Total Score: 1 Score Reviewed/Action Taken: Yes KEYANA-7 AMB Questionnaire KEYANA-7 Date KEYANA - 7 assessed: 01/27/22 Source: Developed by Drs. Derick Thacker, Katie Gibson, David Valenzuela and colleagues, with an educational cristino from [employer]. Review of Systems Const Denies chills and Denies fever(s) ENT Denies epistaxis and Denies nasal discharge Card Denies chest pain Resp Denies chest congestion, Denies cough and Denies hemoptysis GI Denies diarrhea and Denies nausea Skin/Breast Denies rash Neuro Reports no additional complaints Psych Reports no additional complaints Endo Reports no additional complaints Physical exam (Primary Care) Tobacco/Smoking Status: Tobacco use Status Tobacco use date assessed 02/15/23 02/15/23 10:27 Patient Tobacco Use Status Current everyday Tobacco 02/15/23 10:23 Tobacco use type Cigarette 02/15/23 10:23 e-Cigarette/Vaping Use Never Used 02/15/23 10:23 Are you ready to quit: Yes Tobacco cessation counseling provided: Yes Relapse Prevention: discussed the importance of a supportive environment and discussed dietary, exercise and/or lifestyle changes CPT code: 41235 - 4-10 Minutes Thrive Assessment: Date of Thrive Assessment Date Thrive assessed 01/27/22 02/15/23 10:23 Telehealth Telehealth Location of provider rendering services: practice address Location of patient: address on file Patient Identification confirmed using: Name, : Yes Telehealth method: voice only Patient verbally consented to treatment: Yes Patient verbally consented to billing insurance company: Yes Patient informed of any privacy concerns related to visit: Yes Minutes spent on Phone/Video with Pt.: 12 Assessment and Plan Assessment & Plan (1) Tobacco use disorder: Code(s): F17.200 - Nicotine dependence, unspecified, uncomplicated (2) Tobacco abuse counseling: Code(s): Z71.6 - Tobacco abuse counseling Plan This is a tele medicine visit to talk about smoking habit Patient has been smoking half a pack per day he has been smoking for years. He has tried Chantix in the past which did not help him. We will be starting him on Nicoderm patch 21 mg, patient is aware that once he put the patch on he is not to smoke. His is also smoking she is my patient I will be sending patches for her as well it is highly important that both of them should stop together as it will be difficult if 1 partner is smoking in the house. Patient have appointment coming up for his regular follow-up in few days he will keep that appointment. Medications: New nicotine (Nicoderm CQ) 1 patch transdermal Q24H 28 ea 0RF Coding Level of Care Code Tele Est Pt Level 3 (91030) Diagnoses Tobacco use disorder F17.200 Tobacco abuse counseling Z71.6 Additional Codes Vital Signs *Quality* - CPT code: 59386 - 4-10 Minutes ([id number]) Comment 11 with pt, 5 charting / meds
== END 2023-02-15 13:09 | disposition home or self-care (01) ==
LOC: HO.HMGC 08:26
PROVIDERS: PCP Internal Medicine; Visit Provider Internal Medicine
DX: F17.210 Nicotine dependence, cigarettes, uncomplicated (principal); Z71.6 Tobacco abuse counseling
CPT/HCPCS: 99213; 99406

== ENCOUNTER 2023-05-25 08:05 | Outpatient (AMB) | payer MEDICARE, MEDICAID, SELFPAY ==
--- NOTE | 2023-05-25 08:09 | MHC.PC.OV ---
Vital Signs 05/25/23 08:10 Height 5 ft 9 in Weight 185 lb BMI 27.3 BP 118/68 Blood Pressure Location Lt brachial Position Sitting Pulse 78 Pulse Source Pulse Oximeter Pulse Oximetry (%) 96 Oxygen Delivery Method Room Air Intake Visit Reasons: 6m follow up Chemical Treatment Operator Required: No Accompanied by: Self / Same As Patient Allergies varenicline [From Chantix] Allergy (Intermediate, Verified 05/25/23 08:10) mood swings asprin Allergy (Severe, Uncoded 12/05/22 13:40) Nausea Medication List - Last Reconciled 05/25/23 by Mali Garcia MD albuterol sulfate 0.63 mg (3 mL) inhalation QID PRN 30 days albuterol sulfate 90 mcg/actuation (ProAir HFA) 1 inh inhalation QID PRN 30 days amlodipine 10 mg PO DAILY apixaban (Eliquis) 5 mg PO BID 90 days buspirone 15 mg PO QID fluticasone propion-salmeterol 232-14 mcg/actuation (AirDuo RespiClick) 1 inh inhalation Q12H hydrochlorothiazide 25 mg PO DAILY 90 days lisinopril 30 mg PO DAILY 90 days metformin 1,000 mg PO BID 90 days metoprolol succinate ER (Toprol XL) 25 mg PO DAILY nicotine (Nicoderm CQ) 1 patch transdermal Q24H rosuvastatin 10 mg PO DAILY 90 days trazodone 200 mg (2 x 100 mg) PO BEDTIME 90 days Tobacco use date assessed: 05/25/23 Dental Screening Dental Screen Date: 05/25/23 HPI 6m follow up HPI Details Patient is a 63-year-old gentleman came in today for his regular follow-up appoint atrial fibrillation : he is taking Eliquis, however has not seen ramp boss in a while Blood pressure : It is running low I am reducing amlodipine to 5 mg, currently he is taking amlodipine 10 mg along with hydrochlorothiazide 25 mg and lisinopril 30 mg. No side effects Diabetes mellitus: Hemoglobin A1c is 5.4 today patient is on metformin 1 g b.i.d.. Lipid disorder: Continue rosuvastatin 10 mg due for labs Difficulty sleeping at night, patient is on trazodone 100 mg which is helping him Anxiety is stable with buspirone 15 mg up to 3 times a day. Right shoulder has improved patient has seen alternative financing specialist was given cortisone injection and has gone through physical therapy, he is to continue physical therapy at home. Continue to smoke COPD, patient have an updraft machine at home he is also taking maintenance inhaler He has severe osteoarthritis right hip, and is requesting handicap placard that he already have but need to be renewed. He uses cane to walk off and on Paperwork filled Follow-up 3 months [facility] Medical History Arthritis Tobacco use disorder Atrial fibrillation Anemia Thrombocytopenia COPD (chronic obstructive pulmonary disease) Diabetes type 2, controlled Hypertension, essential Surgical History History of hip surgery Family History Mother Cancer Father Cancer Social History Housing: House Patient Tobacco Use Status: Current everyday Tobacco user Tobacco use type: Cigarette Cigarettes Per Day: 6 e-Cigarette/Vaping Use: Never Used service: No Current occupational status: retired Current occupation: right hand dominant Cognitive needs: No Hearing needs: No Vision needs: Yes Questionnaire PHQ-9 Over the last 2 weeks, how often have you been bothered by any of the following problems? 1. Little interest or pleasure in doing things: not at all 2. Feeling down, depressed, or hopeless: not at all 3. Trouble falling or staying asleep, or sleeping too much: not at all 4. Feeling tired or having little energy: not at all 5. Poor appetite or overeating: not at all 6. Feeling bad about yourself - or that you are a failure or have let yourself or your family down: not at all 7. Trouble concentrating on things, such as reading the newspaper or watching television: not at all 8. Moving or speaking so slowly that other people could have noticed. Or the opposite - being so fidgety or restless that you have been moving around a lot more than usual: not at all 9. Thoughts that you would be better off or of hurting yourself in some way: not at all Total score: 0 Depression Screening Interpretation: Negative Depression Screening Done: Yes 44322 - PHQ-9 Billing: Yes Source: Developed by Drs. Derick Thacker, Katie Gibson, David Valenzuela and colleagues, with an educational cristino from [employer]. Thrive Questionnaire Date Thrive assessed: 05/25/23 I am a: Patient What is your living situation today?: I have a steady place to live Within the past 12 months, did the food you bought not last and you didn't have the money to get more?: Never true Within the past 12 months, did you worry whether your food would run out before you got money to buy more?: Never true Do you have trouble paying for medicines?: No Do you have trouble getting transportation to medical appointments?: No Do you have trouble paying your heating and electricity bill?: No Do you have trouble taking care of your child, family member or friend?: No Do you have trouble with day-to-day activities such as bathing, preparing meals, shopping, managing finances, etc.?: No Are you currently unemployed and looking for a job?: No Are you interested in more education?: No Please select the resources that you would like help with: None Currently or been in a relationship where the following occur: no concerns reported THRIVE Score: 0 KEYANA-7 AMB Questionnaire KEYANA-7 Date KEYANA - 7 assessed: 05/25/23 Feeling nervous, anxious, or on edge: 0 = Not at all Not being able to stop or control worryin = Not at all Worrying too much about different things: 0 = Not at all Trouble relaxin = Not at all Being so restless that it is hard to sit still: 0 = Not at all Becoming easily annoyed or irritable: 0 = Not at all Feeling afraid as if something awful might happen: 0 = Not at all Total KEYANA-7 score (0-4 normal; 5-9 mild; 10-14 moderate; 15-21 severe): 0 Source: Developed by Drs. Derick Thacker, David Moore and colleagues, with an educational cristino from [employer]. KEYANA-7 Assessment Billing KEYANA-7 Assessment Tool: KEYANA-7 Assessment 84800 Review of Systems Const Denies chills and Denies fever(s) ENT Denies epistaxis and Denies nasal discharge Card Denies chest pain Resp Denies chest congestion and Denies hemoptysis GI Denies diarrhea and Denies nausea Skin/Breast Denies rash Neuro Reports no additional complaints Psych Reports no additional complaints Endo Reports no additional complaints Physical exam (Primary Care) Vital Signs: Last Vital Signs Pulse 78 05/25/23 08:10 BP 118/68 05/25/23 08:10 Pulse Ox 96 05/25/23 08:10 Oxygen Delivery Method Room Air 05/25/23 08:10 BMI result Body Mass Index 27.3 Tobacco/Smoking Status: Tobacco use Status Tobacco use date assessed 05/25/23 05/25/23 08:15 Patient Tobacco Use Status Current everyday Tobacco 05/25/23 08:15 Tobacco use type Cigarette 05/25/23 08:15 e-Cigarette/Vaping Use Never Used 05/25/23 08:15 Are you ready to quit: No Tobacco cessation counseling provided: Yes Relapse Prevention: discussed the importance of a supportive environment and discussed dietary, exercise and/or lifestyle changes PHQ-9: PHQ-9 Score PHQ-9: Total score 0 05/25/23 08:34 Depression Screening Interpretation: Negative Thrive Assessment: Date of Thrive Assessment Date Thrive assessed 05/25/23 05/25/23 08:18 Currently or been in a relationship where the following occur: no concerns reported Const General: cooperative, comfortable and no acute distress Orientation/consciousness: patient oriented x3 HENMT Head: Yes normocephalic Eyes General: appearance normal, both eyes and all related structures Neck Neck: Yes supple Resp Effort & Inspection: normal respiratory effort, no cough and no stridor Cardio Rhythm: regular rhythm Heart sounds: S1 normal heart sound present and S2 normal heart sound present Skin General skin exam: turgor normal Neuro General: patient oriented x3, tone normal and moves all extremities Extrem Right lower extremity: no edema Left lower extremity: no edema Assessment and Plan Assessment & Plan (1) Diabetes type 2, controlled: Code(s): E11.9 - Type 2 diabetes mellitus without complications Qualifiers: Diabetes mellitus complication status: with other specified complication Diabetes mellitus termite control representative insulin use: without termite control representative use Qualified Code(s): E11.69 - Type 2 diabetes mellitus with other specified complication (2) Hypertension, essential: Code(s): I10 - Essential (primary) hypertension (3) Atrial fibrillation: Code(s): I48.91 - Unspecified atrial fibrillation Qualifiers: Atrial fibrillation type: longstanding persistent Qualified Code(s): I48.11 - Longstanding persistent atrial fibrillation (4) Tobacco use disorder: Code(s): F17.200 - Nicotine dependence, unspecified, uncomplicated (5) Anemia: Code(s): D64.9 - Anemia, unspecified Qualifiers: Anemia type: other cause Other causes of anemia: chronic disease, other Qualified Code(s): D63.8 - Anemia in other chronic diseases classified elsewhere (6) Thrombocytopenia: Code(s): D69.6 - Thrombocytopenia, unspecified (7) COPD (chronic obstructive pulmonary disease): Code(s): J44.9 - Chronic obstructive pulmonary disease, unspecified Qualifiers: COPD type: emphysema Emphysema type: panlobular Qualified Code(s): J43.1 - Panlobular emphysema (8) Anxiety, generalized: Code(s): F41.1 - Generalized anxiety disorder (9) Lipid disorder: Code(s): E78.9 - Disorder of lipoprotein metabolism, unspecified (10) Smokers' cough: Code(s): J41.0 - Simple chronic bronchitis Plan Patient is a 63-year-old gentleman came in today for his regular follow-up appoint atrial fibrillation : he is taking Eliquis, however has not seen ramp boss in a while Blood pressure : It is running low I am reducing amlodipine to 5 mg, currently he is taking amlodipine 10 mg along with hydrochlorothiazide 25 mg and lisinopril 30 mg. No side effects Diabetes mellitus: Hemoglobin A1c is 5.4 today patient is on metformin 1 g b.i.d.. Lipid disorder: Continue rosuvastatin 10 mg due for labs Difficulty sleeping at night, patient is on trazodone 100 mg which is helping him Anxiety is stable with buspirone 15 mg up to 3 times a day. Right shoulder has improved patient has seen alternative financing specialist was given cortisone injection and has gone through physical therapy, he is to continue physical therapy at home. Continue to smoke COPD, patient have an updraft machine at home he is also taking maintenance inhaler He has severe osteoarthritis right hip, and is requesting handicap placard that he already have but need to be renewed. He uses cane to walk off and on Paperwork filled Follow-up 3 months Orders: Orders Hemoglobin A1c Today D64.9 - Anemia, unspecified, D69.6 - Thrombocytopenia, unspecified, E11.9 - Type 2 diabetes mellitus without complications, E66.09 - Other obesity due to excess calories, E78.9 - Disorder of lipoprotein metabolism, unspecified, F17.200 - Nicotine dependence, unspecified, uncomplicated, F41.1 - Generalized anxiety disorder, I10 - Essential (primary) hypertension, I48.91 - Unspecified atrial fibrillation, J44.9 - Chronic obstructive pulmonary disease, unspecified Microalbumin, Random (w Creat) Today D64.9 - Anemia, unspecified, D69.6 - Thrombocytopenia, unspecified, E11.9 - Type 2 diabetes mellitus without complications, E66.09 - Other obesity due to excess calories, E78.9 - Disorder of lipoprotein metabolism, unspecified, F17.200 - Nicotine dependence, unspecified, uncomplicated, F41.1 - Generalized anxiety disorder, I10 - Essential (primary) hypertension, I48.91 - Unspecified atrial fibrillation, J44.9 - Chronic obstructive pulmonary disease, unspecified Complete Blood Count Auto Diff 3 Months D64.9 - Anemia, unspecified, D69.6 - Thrombocytopenia, unspecified, E11.9 - Type 2 diabetes mellitus without complications, E78.9 - Disorder of lipoprotein metabolism, unspecified, F17.200 - Nicotine dependence, unspecified, uncomplicated, F41.1 - Generalized anxiety disorder, I10 - Essential (primary) hypertension, I48.91 - Unspecified atrial fibrillation, J41.0 - Simple chronic bronchitis, J44.9 - Chronic obstructive pulmonary disease, unspecified Comprehensive [place]. Panel Fast 3 Months D64.9 - Anemia, unspecified, D69.6 - Thrombocytopenia, unspecified, E11.9 - Type 2 diabetes mellitus without complications, E78.9 - Disorder of lipoprotein metabolism, unspecified, F17.200 - Nicotine dependence, unspecified, uncomplicated, F41.1 - Generalized anxiety disorder, I10 - Essential (primary) hypertension, I48.91 - Unspecified atrial fibrillation, J41.0 - Simple chronic bronchitis, J44.9 - Chronic obstructive pulmonary disease, unspecified Hemoglobin A1c 3 Months D64.9 - Anemia, unspecified, D69.6 - Thrombocytopenia, unspecified, E11.9 - Type 2 diabetes mellitus without complications, E78.9 - Disorder of lipoprotein metabolism, unspecified, F17.200 - Nicotine dependence, unspecified, uncomplicated, F41.1 - Generalized anxiety disorder, I10 - Essential (primary) hypertension, I48.91 - Unspecified atrial fibrillation, J41.0 - Simple chronic bronchitis, J44.9 - Chronic obstructive pulmonary disease, unspecified Comprehensive Met. Panel Today D64.9 - Anemia, unspecified, D69.6 - Thrombocytopenia, unspecified, E11.9 - Type 2 diabetes mellitus without complications, E66.09 - Other obesity due to excess calories, E78.9 - Disorder of lipoprotein metabolism, unspecified, F17.200 - Nicotine dependence, unspecified, uncomplicated, F41.1 - Generalized anxiety disorder, I10 - Essential (primary) hypertension, I48.91 - Unspecified atrial fibrillation, J44.9 - Chronic obstructive pulmonary disease, unspecified Complete Blood Count Auto Diff Today D64.9 - Anemia, unspecified, D69.6 - Thrombocytopenia, unspecified, E11.9 - Type 2 diabetes mellitus without complications, E66.09 - Other obesity due to excess calories, E78.9 - Disorder of lipoprotein metabolism, unspecified, F17.200 - Nicotine dependence, unspecified, uncomplicated, F41.1 - Generalized anxiety disorder, I10 - Essential (primary) hypertension, I48.91 - Unspecified atrial fibrillation, J44.9 - Chronic obstructive pulmonary disease, unspecified LDL Cholesterol Direct Today D64.9 - Anemia, unspecified, D69.6 - Thrombocytopenia, unspecified, E11.9 - Type 2 diabetes mellitus without complications, E66.09 - Other obesity due to excess calories, E78.9 - Disorder of lipoprotein metabolism, unspecified, F17.200 - Nicotine dependence, unspecified, uncomplicated, F41.1 - Generalized anxiety disorder, I10 - Essential (primary) hypertension, I48.91 - Unspecified atrial fibrillation, J44.9 - Chronic obstructive pulmonary disease, unspecified Lipid Panel 3 Months D64.9 - Anemia, unspecified, D69.6 - Thrombocytopenia, unspecified, E11.9 - Type 2 diabetes mellitus without complications, E78.9 - Disorder of lipoprotein metabolism, unspecified, F17.200 - Nicotine dependence, unspecified, uncomplicated, F41.1 - Generalized anxiety disorder, I10 - Essential (primary) hypertension, I48.91 - Unspecified atrial fibrillation, J41.0 - Simple chronic bronchitis, J44.9 - Chronic obstructive pulmonary disease, unspecified Coding Level of Care Code Est Pt Level 4 (54438) Diagnoses Controlled type 2 diabetes mellitus with other specified complication, without long-term current use of insulin E11.69 Diabetes mellitus complication status: with other specified complication Diabetes mellitus termite control representative insulin use: without termite control representative use Hypertension, essential I10 Longstanding persistent atrial fibrillation I48.11 Atrial fibrillation type: longstanding persistent Tobacco use disorder F17.200 Anemia in other chronic diseases classified elsewhere D63.8 Anemia type: other cause Other causes of anemia: chronic disease, other Thrombocytopenia D69.6 Panlobular emphysema J43.1 COPD type: emphysema Emphysema type: panlobular Anxiety, generalized F41.1 Lipid disorder E78.9 Smokers' cough J41.0 Additional Codes KEYANA-7 Assessment Billing - KEYANA-7 Assessment Tool: KEYANA-7 Assessment 42643 ([id number])
[2023-05-25 08:10] VITALS: BP 118/68; PULSE 78; O2SAT 96; BMI 27.3
== END 2023-05-25 10:33 | disposition home or self-care (01) ==
PROVIDERS: PCP Internal Medicine; Visit Provider Internal Medicine
DX: E11.69 Type 2 diabetes mellitus with other specified complication (principal); I48.11 Longstanding persistent atrial fibrillation; D69.6 Thrombocytopenia, unspecified; J43.1 Panlobular emphysema; J41.0 Simple chronic bronchitis; I10 Essential (primary) hypertension; F17.210 Nicotine dependence, cigarettes, uncomplicated; D63.8 Anemia in other chronic diseases classified elsewhere; F41.1 Generalized anxiety disorder; E78.9 Disorder of lipoprotein metabolism, unspecified
CPT/HCPCS: 99214

== ENCOUNTER 2023-10-05 13:25 | Outpatient (AMB) | payer MEDICARE, SELFPAY ==
--- NOTE | 2023-10-05 13:36 | A.OFFPC_ITS ---
Vital Signs 10/05/23 13:38 Height 5 ft 9 in Weight 184 lb 8 oz BMI 27.2 BP 118/60 Blood Pressure Location Rt brachial Position Sitting Pulse 73 Pulse Source Pulse Oximeter Pulse Oximetry (%) 92 Oxygen Delivery Method Room Air Intake Visit Reasons: Overdue F/u~ Allergies varenicline [From Chantix] Allergy (Intermediate, Verified 10/05/23 13:42) mood swings asprin Allergy (Severe, Uncoded 12/05/22 13:40) Nausea Medication List - Last Reconciled 10/05/23 by Mali Garcia MD albuterol sulfate 0.63 mg (3 mL) inhalation QID PRN 30 days albuterol sulfate 90 mcg/actuation (ProAir HFA) 1 inh inhalation QID PRN 30 days amlodipine 10 mg PO DAILY apixaban (Eliquis) 5 mg PO BID buspirone 15 mg PO QID fluticasone propion-salmeterol 232-14 mcg/actuation (AirDuo RespiClick) 1 inh inhalation Q12H hydrochlorothiazide 25 mg PO DAILY 90 days lisinopril 30 mg PO DAILY 90 days metformin 1,000 mg PO BID 90 days metoprolol succinate ER 25 mg PO DAILY nicotine (Nicoderm CQ) 1 patch transdermal Q24H rosuvastatin 10 mg PO DAILY trazodone 200 mg (2 x 100 mg) PO BEDTIME 90 days Tobacco use date assessed: 10/05/23 Dental Screening Dental Screen Date: 10/05/23 Did you have a dental visit in the last 12 months?: Yes Did you have a dental problem in the last 6 months where you did not have access to dental care?: No Was dental information given to patient?: Patient has dentist HPI Overdue F/u~ HPI Details Patient is a 63-year-old gentleman came in today for his regular follow-up appoint Patient still has not done his labs, reminded again atrial fibrillation : he is taking Eliquis, however 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 No side effects Diabetes mellitus: Hemoglobin A1c well-controlled, he is taking metformin 1 g b.i.d.. Lipid disorder: Continue rosuvastatin 10 mg due for labs Difficulty sleeping at night, patient is on trazodone 100 mg which is helping him Anxiety is stable with buspirone 15 mg up to 3 times a day. Continue to smoke COPD, patient have an updraft machine at home he is also taking maintenance inhaler He has severe osteoarthritis right hip taking Tylenol off and on Follow-up 3 months [facility] Medical History Arthritis Tobacco use disorder Atrial fibrillation Anemia Thrombocytopenia COPD (chronic obstructive pulmonary disease) Diabetes type 2, controlled Hypertension, essential Surgical History History of hip surgery Family History Mother Cancer Father Cancer Social History Housing: House Patient Tobacco Use Status: Current everyday Tobacco user Tobacco use type: Cigarette Cigarettes Per Day: 6 e-Cigarette/Vaping Use: Never Used service: No Current occupational status: retired Current occupation: right hand dominant Cognitive needs: No Hearing needs: No Vision needs: Yes Questionnaire Thrive Questionnaire Date Thrive assessed: 05/25/23 AUDIT C Alcohol Use Questionnaire (AUDIT-C) 1. How often do you have a drink containing alcohol?: Monthly or less 2. How many drinks containing alcohol do you have on a typical day when you are drinking?: 1 or 2 3. How often do you have six or more drinks on one occasion?: Never Total Score: 1 Score Reviewed/Action Taken: Yes KEYANA-7 AMB Questionnaire KEYANA-7 Date KEYANA - 7 assessed: 05/25/23 Source: Developed by Drs. Derick Thacker, Katie Gibson, David Valenzuela and colleagues, with an educational cristino from [employer]. Review of Systems Const Denies chills and Denies fever(s) ENT Denies epistaxis and Denies nasal discharge Card Denies chest pain Resp Denies chest congestion, Denies cough and Denies hemoptysis GI Denies diarrhea and Denies nausea Skin/Breast Denies rash Neuro Reports no additional complaints Psych Reports no additional complaints Endo Reports no additional complaints Physical exam (Primary Care) Vital Signs: Last Vital Signs Pulse 73 10/05/23 13:38 BP 118/60 10/05/23 13:38 Pulse Ox 92 05/31/24 13:38 Oxygen Delivery Method Room Air 10/05/23 13:38 BMI result Body Mass Index 27.2 Tobacco/Smoking Status: Tobacco use Status Tobacco use date assessed 10/05/23 10/05/23 13:43 Patient Tobacco Use Status Current everyday Tobacco 10/05/23 13:37 Tobacco use type Cigarette 10/05/23 13:37 e-Cigarette/Vaping Use Never Used 10/05/23 13:37 Thrive Assessment: Date of Thrive Assessment Date Thrive assessed 05/25/23 10/05/23 13:37 Const General: cooperative, comfortable and no acute distress Orientation/consciousness: patient oriented x3 HENMT Head: Yes normocephalic Eyes General: appearance normal, both eyes and all related structures Neck Neck: Yes supple Resp Effort & Inspection: normal respiratory effort, no cough and no stridor Cardio Rhythm: regular rhythm Heart sounds: S1 normal heart sound present and S2 normal heart sound present Skin General skin exam: turgor normal Neuro General: patient oriented x3, tone normal and moves all extremities Extrem Right lower extremity: no edema Left lower extremity: no edema Assessment and Plan Assessment & Plan (1) Diabetes type 2, controlled: Code(s): E11.9 - Type 2 diabetes mellitus without complications Qualifiers: Diabetes mellitus complication status: with other specified complication Diabetes mellitus senior living insulin use: without termite exterminator helper use Qualified Code(s): E11.69 - Type 2 diabetes mellitus with other specified complication (2) Hypertension, essential: Code(s): I10 - Essential (primary) hypertension (3) Atrial fibrillation: Code(s): I48.91 - Unspecified atrial fibrillation Qualifiers: Atrial fibrillation type: longstanding persistent Qualified Code(s): I48.11 - Longstanding persistent atrial fibrillation (4) Tobacco use disorder: Code(s): F17.200 - Nicotine dependence, unspecified, uncomplicated (5) Thrombocytopenia: Code(s): D69.6 - Thrombocytopenia, unspecified (6) Anemia: Code(s): D64.9 - Anemia, unspecified Qualifiers: Anemia type: other cause Other causes of anemia: chronic disease, other Qualified Code(s): D63.8 - Anemia in other chronic diseases classified elsewhere (7) COPD (chronic obstructive pulmonary disease): Code(s): J44.9 - Chronic obstructive pulmonary disease, unspecified Qualifiers: COPD type: emphysema Emphysema type: panlobular Qualified Code(s): J43.1 - Panlobular emphysema (8) Anxiety, generalized: Code(s): F41.1 - Generalized anxiety disorder (9) Lipid disorder: Code(s): E78.9 - Disorder of lipoprotein metabolism, unspecified (10) Smokers' cough: Code(s): J41.0 - Simple chronic bronchitis Plan Patient is a 63-year-old gentleman came in today for his regular follow-up appoint Patient still has not done his labs, reminded again atrial fibrillation : he is taking Eliquis, however 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 No side effects Diabetes mellitus: Hemoglobin A1c well-controlled, he is taking metformin 1 g b.i.d.. Lipid disorder: Continue rosuvastatin 10 mg due for labs Difficulty sleeping at night, patient is on trazodone 100 mg which is helping him Anxiety is stable with buspirone 15 mg up to 3 times a day. Continue to smoke COPD, patient have an updraft machine at home he is also taking maintenance inhaler He has severe osteoarthritis right hip taking Tylenol off and on Follow-up 3 months Orders: Orders Complete Blood Count Auto Diff Today D63.8 - Anemia in other chronic diseases classified elsewhere, D69.6 - Thrombocytopenia, unspecified, E11.69 - Type 2 diabetes mellitus with other specified complication, E66.09 - Other obesity due to excess calories, E78.9 - Disorder of lipoprotein metabolism, unspecified, F17.200 - Nicotine dependence, unspecified, uncomplicated, F41.1 - Generalized anxiety disorder, I10 - Essential (primary) hypertension, I48.11 - Longstanding persistent atrial fibrillation, J43.1 - Panlobular emphysema Comprehensive Met. Panel Today D63.8 - Anemia in other chronic diseases classified elsewhere, D69.6 - Thrombocytopenia, unspecified, E11.69 - Type 2 diabetes mellitus with other specified complication, E66.09 - Other obesity due to excess calories, E78.9 - Disorder of lipoprotein metabolism, unspecified, F17.200 - Nicotine dependence, unspecified, uncomplicated, F41.1 - Generalized anxiety disorder, I10 - Essential (primary) hypertension, I48.11 - Longstanding persistent atrial fibrillation, J43.1 - Panlobular emphysema LDL Cholesterol Direct Today D63.8 - Anemia in other chronic diseases classified elsewhere, D69.6 - Thrombocytopenia, unspecified, E11.69 - Type 2 diabetes mellitus with other specified complication, E66.09 - Other obesity due to excess calories, E78.9 - Disorder of lipoprotein metabolism, unspecified, F17.200 - Nicotine dependence, unspecified, uncomplicated, F41.1 - Generalized anxiety disorder, I10 - Essential (primary) hypertension, I48.11 - Longstanding persistent atrial fibrillation, J43.1 - Panlobular emphysema Hemoglobin A1c Today D63.8 - Anemia in other chronic diseases classified [place] sewhere, D69.6 - Thrombocytopenia, unspecified, E11.69 - Type 2 diabetes mellitus with other specified complication, E66.09 - Other obesity due to excess calories, E78.9 - Disorder of lipoprotein metabolism, unspecified, F17.200 - Nicotine dependence, unspecified, uncomplicated, F41.1 - Generalized anxiety disorder, I10 - Essential (primary) hypertension, I48.11 - Longstanding persistent atrial fibrillation, J43.1 - Panlobular emphysema Microalbumin, Random (w Creat) Today D63.8 - Anemia in other chronic diseases classified elsewhere, D69.6 - Thrombocytopenia, unspecified, E11.69 - Type 2 diabetes mellitus with other specified complication, E66.09 - Other obesity due to excess calories, E78.9 - Disorder of lipoprotein metabolism, unspecified, F17.200 - Nicotine dependence, unspecified, uncomplicated, F41.1 - Generalized anxiety disorder, I10 - Essential (primary) hypertension, I48.11 - Longstanding persistent atrial fibrillation, J43.1 - Panlobular emphysema Medications: New fluticasone propion-salmeterol 500-50 mcg/dose (Wixela Inhub) 1 inh inhalation Q12H 60 ea 3RF Changed From albuterol sulfate 90 mcg/actuation (ProAir HFA) 1 inh inhalation QID 30 days PRN 8.5 grams 2RF shortness of breath or wheezing To albuterol sulfate 90 mcg/actuation (ProAir HFA) 1 inh inhalation QID PRN 3 multiple units 2RF shortness of breath or wheezing 90 days Coding Level of Care Code Est Pt Level 4 (63404) Complex EM visit Add On G2211 Diagnoses Controlled type 2 diabetes mellitus with other specified complication, without long-term current use of insulin E11.69 Diabetes mellitus complication status: with other specified complication Diabetes mellitus termite exterminator helper insulin use: without termite exterminator helper use Hypertension, essential I10 Longstanding persistent atrial fibrillation I48.11 Atrial fibrillation type: longstanding persistent Tobacco use disorder F17.200 Thrombocytopenia D69.6 Anemia in other chronic diseases classified elsewhere D63.8 Anemia type: other cause Other causes of anemia: chronic disease, other Panlobular emphysema J43.1 COPD type: emphysema Emphysema type: panlobular Anxiety, generalized F41.1 Lipid disorder E78.9 Smokers' cough J41.0
[2023-10-05 13:38] VITALS: BP 118/60; PULSE 73; O2SAT 92; BMI 27.2
== END 2023-10-05 14:03 | disposition home or self-care (01) ==
LOC: HO.HMGC 13:25
PROVIDERS: PCP Internal Medicine; Visit Provider Internal Medicine
DX: E11.69 Type 2 diabetes mellitus with other specified complication (principal); I48.11 Longstanding persistent atrial fibrillation; D69.6 Thrombocytopenia, unspecified; J43.1 Panlobular emphysema; J41.0 Simple chronic bronchitis; I10 Essential (primary) hypertension; F17.200 Nicotine dependence, unspecified, uncomplicated; D63.8 Anemia in other chronic diseases classified elsewhere; F41.1 Generalized anxiety disorder; E78.9 Disorder of lipoprotein metabolism, unspecified
CPT/HCPCS: 99214; G2211

== ENCOUNTER 2023-10-05 13:59 | Outpatient (REF) | payer MEDICARE, SELFPAY ==
[2023-10-05 16:04] LABS: MANUAL DIFF FLAG NO
[2023-10-05 16:17] LABS: Basophils Percent Auto 0.2 % (0-2); Eosinophils Absolute Auto 0.4 X10*3/uL (0.0-0.4); Eosinophils Percent Auto 4.1 % (0-4); Hematocrit 46.2 % (42.0-52.0); Hemoglobin 15.4 g/dl (14.0-18.0); Imm Gran Abs Auto 0.03 X10*3/uL (0.00-0.03); Imm Gran Pct Auto 0.3 % (0.0-0.4); Lymphocytes Absolute Auto 2.9 X10*3/uL (1.2-4.9); Lymphocytes Percent Auto 28.8 % (20-40); Mean Corpuscular HGB Conc 33.3 g/dl (31.0-36.0); Mean Corpuscular Hemoglobin 30.7 pg (27.0-33.0); Mean Corpuscular Volume 92.2 fL (80.0-98.0); Mean Platelet Volume 12.1 fL (9.4-12.4); Monocytes Absolute Auto 0.6 X10*3/uL (0.1-1.2); Monocytes Percent Auto 6.3 % (2-11); Neutrophils Absolute Auto 6.1 x10*3/uL (2.0-8.3); Neutrophils Percent Auto 60.3 % (45-73); Platelet Count 213 X10*3/uL (160-400); Red Blood Count 5.01 X10*6/uL (4.60-5.80); Red Cell Distribution Width 13.2 % (11.0-16.0); White Blood Count 10.1 X10*3/uL (4.8-10.8)
[2023-10-05 16:21] LABS: Estimated Average Glucose 111 mg/dL; Hemoglobin A1C 140.0897 umol/L; Hemoglobin A1c % 5.5 % (<6.0)
[2023-10-05 16:41] LABS: Alanine Aminotransferase 18 U/L (0-40); Albumin Level 4.2 g/dL (3.5-5.0); Alkaline Phosphatase 56 U/L (39-117); Anion Gap 13 (12-20); Aspartate Amino Transferase 19 U/L (5-37); Bilirubin Total 0.4 mg/dL (0.0-1.0); Blood Urea Nitrogen 14 mg/dL (9-16); Calcium 9.6 mg/dL (8.4-10.2); Carbon Dioxide 28 mmol/L (22-29); Chloride 102 mmol/L (96-108); Estimated Glomerular Filt Rate > 60; Glucose Random 94 mg/dL (60-115); Sodium 139 mmol/L (135-145); Total Protein 6.8 g/dL (6.5-8.0)
[2023-10-06 13:09] LABS: LDL Cholesterol Direct 27 mg/dL (<100)
== END 2023-10-05 14:00 | disposition home or self-care (01) ==
LOC: HO.HMGCLDS 13:59
PROVIDERS: PCP Internal Medicine; Visit Provider Internal Medicine
DX: E11.69 Type 2 diabetes mellitus with other specified complication (principal); I10 Essential (primary) hypertension; I48.11 Longstanding persistent atrial fibrillation; F17.200 Nicotine dependence, unspecified, uncomplicated; D69.6 Thrombocytopenia, unspecified; D63.8 Anemia in other chronic diseases classified elsewhere; J43.1 Panlobular emphysema; F41.1 Generalized anxiety disorder; E78.9 Disorder of lipoprotein metabolism, unspecified; E66.09 Other obesity due to excess calories
CPT/HCPCS: 36415; 80053; 83036; 83721; 85025

== ENCOUNTER 2024-01-04 12:06 | Outpatient (AMB) | payer MEDICARE, SELFPAY ==
[2024-01-04 12:14] VITALS: BP 96/62; PULSE 76; O2SAT 95; BMI 25.7
--- NOTE | 2024-01-04 12:14 | A.OFFPC_ITS ---
Vital Signs 01/04/24 12:14 Height 5 ft 9 in Weight 174 lb BMI 25.7 BP 96/62 Blood Pressure Location Lt brachial Position Sitting Pulse 76 Pulse Source Pulse Oximeter Pulse Oximetry (%) 95 Oxygen Delivery Method Room Air Intake Visit Reasons: 3 month follow up Allergies varenicline [From Chantix] Allergy (Intermediate, Verified 01/04/24 12:18) mood swings asprin Allergy (Severe, Uncoded 01/04/24 12:18) Nausea Medication List - Last Reconciled 01/04/24 by Mali Gracia MD albuterol sulfate 0.63 mg (3 mL) inhalation QID PRN 30 days albuterol sulfate 90 mcg/actuation (ProAir HFA) 1 inh inhalation QID PRN 90 days amlodipine 10 mg PO DAILY apixaban (Eliquis) 5 mg PO BID buspirone 15 mg PO QID fluticasone propion-salmeterol 500-50 mcg/dose (Wixela Inhub) 1 inh inhalation Q12H hydrochlorothiazide 25 mg PO DAILY 90 days lisinopril 30 mg PO DAILY 90 days metformin 1,000 mg PO BID 90 days metoprolol succinate ER 25 mg PO DAILY nicotine (Nicoderm CQ) 1 patch transdermal Q24H rosuvastatin 10 mg PO DAILY trazodone 200 mg (2 x 100 mg) PO BEDTIME 90 days Tobacco use date assessed: 10/05/23 Dental Screening Dental Screen Date: 10/05/23 HPI 3 month follow up HPI Details Patient is a 63-year-old gentleman came in today for his regular follow-up appoint Labs were done October 04 New set of lab order placed to be done before next visit in 3 months atrial fibrillation : he is taking Eliquis, however has not seen cutter operator helper in a while Hypertension: Patient is taking 3 medications his blood pressure is running low, 96 x 62 I am stopping his amlodipine, he may continue with hydrochlorothiazide and lis inopril 30 mg He has no dizziness no lightheadedness Blood pressure : Patient is on amlodipine 10 mg , hydrochlorothiazide 25 mg and lisinopril 30 mg. Blood pressure is running too low, I have reduced the dose of lisinopril to 20 mg Diabetes mellitus: Hemoglobin A1c well-controlled, he is taking metformin 1 g b.i.d.. I am reducing the dose to 1 g once a day hemoglobin A1c is 5.5 today Lipid disorder: Continue rosuvastatin 10 mg due for labs Difficulty sleeping at night, patient is on trazodone 100 mg which is helping him Anxiety is stable with buspirone 15 mg up to 3 times a day. Continue to smoke COPD, patient have an updraft machine at home he is also taking maintenance inhaler He has severe osteoarthritis right hip taking Tylenol off and on Follow-up 3 months [facility] Medical History Arthritis Tobacco use disorder Atrial fibrillation Anemia Thrombocytopenia COPD (chronic obstructive pulmonary disease) Diabetes type 2, controlled Hypertension, essential Surgical History History of hip surgery Family History Mother Cancer Father Cancer Social History Housing: House Patient Tobacco Use Status: Current everyday Tobacco user Tobacco use type: Cigarette Cigarettes Per Day: 6 e-Cigarette/Vaping Use: Never Used service: No Current occupational status: retired Current occupation: right hand dominant Cognitive needs: No Hearing needs: No Vision needs: Yes Questionnaire Thrive Questionnaire Date Thrive assessed: 05/25/23 KEYANA-7 AMB Questionnaire KEYANA-7 Date KEYANA - 7 assessed: 05/25/23 Source: Developed by Drs. Derick Thacker, Katie Gibson, David Valenzuela and colleagues, with an educational cristino from [employer]. Review of Systems Const Denies chills and Denies fever(s) ENT Denies epistaxis and Denies nasal discharge Card Denies chest pain Resp Denies hemoptysis GI Denies diarrhea and Denies nausea Skin/Breast Denies rash Neuro Reports no additional complaints Psych Reports no additional complaints Endo Reports no additional complaints Physical exam (Primary Care) Vital Signs: Last Vital Signs Pulse 76 01/04/24 12:14 BP 96/62 01/04/24 12:14 Pulse Ox 95 01/04/24 12:14 Oxygen Delivery Method Room Air 01/04/24 12:14 BMI result Body Mass Index 25.7 Tobacco/Smoking Status: Tobacco use Status Tobacco use date assessed 10/05/23 01/04/24 12:14 Patient Tobacco Use Status Current everyday Tobacco 01/04/24 12:14 Tobacco use type Cigarette 01/04/24 12:14 e-Cigarette/Vaping Use Never Used 01/04/24 12:14 Thrive Assessment: Date of Thrive Assessment Date Thrive assessed 05/25/23 01/04/24 12:14 Const General: cooperative, comfortable and no acute distress Orientation/consciousness: patient oriented x3 HENMT Head: Yes normocephalic Eyes General: appearance normal, both eyes and all related structures Neck Neck: Yes supple Resp Effort & Inspection: normal respiratory effort, no cough and no stridor Cardio Rhythm: regular rhythm Heart sounds: S1 normal heart sound present and S2 normal heart sound present Skin General skin exam: turgor normal Neuro General: patient oriented x3, tone normal and moves all extremities Extrem Right lower extremity: no edema Left lower extremity: no edema Results AMB Hemoglobin A1c AMB Hemoglobin A1c 5.5 % Last Edit by CHASTITY Trejo on 01/04/24 12:3 0 Results Reviewed Results Reviewed: Laboratory Last Values Hgb A1c (Clinic) 5.5 % (4.0-6.0) 01/04/24 12:23 Assessment and Plan Assessment & Plan (1) Diabetes type 2, controlled: Code(s): E11.9 - Type 2 diabetes mellitus without complications Qualifiers: Diabetes mellitus complication status: with other specified complication Diabetes mellitus manager terminal insulin use: without manager terminal use Qualified Code(s): E11.69 - Type 2 diabetes mellitus with other specified complication (2) Hypertension, essential: Code(s): I10 - Essential (primary) hypertension (3) Atrial fibrillation: Code(s): I48.91 - Unspecified atrial fibrillation Qualifiers: Atrial fibrillation type: longstanding persistent Qualified Code(s): I48.11 - Longstanding persistent atrial fibrillation (4) Tobacco use disorder: Code(s): F17.200 - Nicotine dependence, unspecified, uncomplicated (5) Thrombocytopenia: Code(s): D69.6 - Thrombocytopenia, unspecified (6) Anemia: Code(s): D64.9 - Anemia, unspecified Qualifiers: Anemia type: other cause Other causes of anemia: chronic disease, other Qualified Code(s): D63.8 - Anemia in other chronic diseases classified elsewhere (7) COPD (chronic obstructive pulmonary disease): Code(s): J44.9 - Chronic obstructive pulmonary disease, unspecified Qualifiers: COPD type: emphysema Emphysema type: panlobular Qualified Code(s): J43.1 - Panlobular emphysema (8) Anxiety, generalized: Code(s): F41.1 - Generalized anxiety disorder (9) Lipid disorder: Code(s): E78.9 - Disorder of lipoprotein metabolism, unspecified (10) Smokers' cough: Code(s): J41.0 - Simple chronic bronchitis Plan Patient is a 63-year-old gentleman came in today for his regular follow-up appoint Labs were done October 04 New set of lab order placed to be done before next visit in 3 months atrial fibrillation : he is taking Eliquis, however has not seen cutter operator helper in a while Hypertension: Patient is taking 3 medications his blood pressure is running low, 96 x 62 I am stopping his amlodipine, he may continue with hydrochlorothiazide and lisinopril 30 mg He has no dizziness no lightheadedness Blood pressure : Patient is on amlodipine 10 mg , hydrochlorothiazide 25 mg and lisinopril 30 mg. Blood pressure is running too low, I have reduced the dose of lisinopril to 20 mg Diabetes mellitus: Hemoglobin A1c well-controlled, he is taking metformin 1 g b.i.d.. I am reducing the dose to 1 g once a day hemoglobin A1c is 5.5 today Lipid disorder: Continue rosuvastatin 10 mg due for labs Difficulty sleeping at night, patient is on trazodone 100 mg which is helping him Anxiety is stable with buspirone 15 mg up to 3 times a day. Continue to smoke COPD, patient have an updraft machine at home he is also taking maintenance inhaler He has severe osteoarthritis right hip taking Tylenol off and on Follow-up 3 months Orders: Orders Hemoglobin A1c 3 Months D63.8 - Anemia in other chronic diseases classified elsewhere, D69.6 - Thrombocytopenia, unspecified, E11.69 - Type 2 diabetes mellitus with other specified complication, I10 - Essential (primary) hypertension, I48.11 - Longstanding persistent atrial fibrillation LDL Cholesterol Direct 3 Months D63.8 - Anemia in other chronic diseases classified elsewhere, D69.6 - Thrombocytopenia, unspecified, E11.69 - Type 2 diabetes mellitus with other specified complication, I10 - Essential (primary) hypertension, I48.11 - Longstanding persistent atrial fibrillation Comprehensive Met. Panel 3 Months D63.8 - Anemia in other chronic diseases classified elsewhere, D69.6 - Thrombocytopenia, unspecified, E11.69 - Type 2 diabetes mellitus with other specified complication, I10 - Essential (primary) hypertension, I48.11 - Longstanding persistent atrial fibrillation Complete Blood Count Auto Diff 3 Months D63.8 - Anemia in other chronic diseases classified elsewhere, D69.6 - Thrombocytopenia, unspecified, E11.69 - Type 2 diabetes mellitus with other specified complication, I10 - Essential (primary) hypertension, I48.11 - Longstanding persistent atrial fibrillation AMB Hemoglobin A1c Today Z13.9 - Encounter for screening, unspecified Medications: Changed From lisinopril 20 mg PO DAILY 90 days 90 tabs 0RF To lisinopril 30 mg PO DAILY 90 tabs 0RF 90 days From metformin 1,000 mg PO BID 90 days 180 tabs 0RF To metformin 1,000 mg PO ONCE 90 tabs 0RF 90 days From lisinopril 30 mg PO DAILY 90 days 90 tabs 0RF To lisinopril 20 mg PO DAILY 90 days 90 tabs 0RF Coding Level of Care Code Est Pt Level 4 (86068) Diagnoses Controlled type 2 diabetes mellitus with other specified complication, without long-term current use of insulin E11.69 Diabetes mellitus complication status: with other specified complication Diabetes mellitus senior living insulin use: without senior living use Hypertension, essential I10 Longstanding persistent atrial fibrillation I48.11 Atrial fibrillation type: longstanding persistent Tobacco use disorder F17.200 Thrombocytopenia D69.6 Anemia in other chronic diseases classified elsewhere D63.8 Anemia type: other cause Other causes of anemia: chronic disease, other Panlobular emphysema J43.1 COPD type: emphysema Emphysema type: panlobular Anxiety, generalized F41.1 Lipid disorder E78.9 Smokers' cough J41.0
== END 2024-01-04 12:34 | disposition home or self-care (01) ==
PROVIDERS: PCP Internal Medicine; Visit Provider Internal Medicine
DX: E11.69 Type 2 diabetes mellitus with other specified complication (principal); I48.11 Longstanding persistent atrial fibrillation; D69.6 Thrombocytopenia, unspecified; J43.1 Panlobular emphysema; J41.0 Simple chronic bronchitis; I10 Essential (primary) hypertension; F17.200 Nicotine dependence, unspecified, uncomplicated; D63.8 Anemia in other chronic diseases classified elsewhere; F41.1 Generalized anxiety disorder; E78.9 Disorder of lipoprotein metabolism, unspecified
CPT/HCPCS: 83036; 99214

== ENCOUNTER 2024-04-01 11:39 | Outpatient (REF) | payer MEDICARE, SELFPAY ==
[2024-04-01 13:13] LABS: MANUAL DIFF FLAG NO
[2024-04-01 13:15] LABS: Basophils Percent Auto 0.2 % (0-2); Eosinophils Absolute Auto 0.4 X10*3/uL (0.0-0.4); Eosinophils Percent Auto 4.9 % (0-4); Hematocrit 45.8 % (42.0-52.0); Hemoglobin 14.7 g/dl (14.0-18.0); Imm Gran Abs Auto 0.03 X10*3/uL (0.00-0.03); Imm Gran Pct Auto 0.4 % (0.0-0.4); Lymphocytes Absolute Auto 2.2 X10*3/uL (1.2-4.9); Lymphocytes Percent Auto 26.1 % (20-40); Mean Corpuscular HGB Conc 32.1 g/dl (31.0-36.0); Mean Corpuscular Hemoglobin 28.9 pg (27.0-33.0); Mean Platelet Volume 11.4 fL (9.4-12.4); Monocytes Absolute Auto 0.6 X10*3/uL (0.1-1.2); Monocytes Percent Auto 6.5 % (2-11); Neutrophils Absolute Auto 5.2 x10*3/uL (2.0-8.3); Neutrophils Percent Auto 61.9 % (45-73); Platelet Count 233 X10*3/uL (160-400); Red Blood Count 5.09 X10*6/uL (4.60-5.80); Red Cell Distribution Width 13.6 % (11.0-16.0); White Blood Count 8.4 X10*3/uL (4.8-10.8)
[2024-04-01 13:28] LABS: Estimated Average Glucose 117 mg/dL; Hemoglobin A1C 144.8985 umol/L; Hemoglobin A1c % 5.7 % (<6.0); Total Hemoglobin (HGBA1C) 3710.9308 umol/L
[2024-04-01 13:46] LABS: Alanine Aminotransferase 20 U/L (0-40); Albumin Level 3.9 g/dL (3.5-5.0); Anion Gap 12 (12-20); Aspartate Amino Transferase 21 U/L (5-37); Bilirubin Total 0.2 mg/dL (0.0-1.0); Blood Urea Nitrogen 14 mg/dL (9-16); Calcium 9.1 mg/dL (8.4-10.2); Carbon Dioxide 29 mmol/L (22-29); Chloride 102 mmol/L (96-108); Estimated Glomerular Filt Rate > 60; Glucose Random 149 mg/dL (60-115); Potassium 3.9 mmol/L (3.3-5.1); Sodium 139 mmol/L (135-145); Total Protein 6.4 g/dL (6.5-8.0)
[2024-04-01 14:10] LABS: Alkaline Phosphatase 83 U/L (39-117)
[2024-04-04 15:33] LABS: LDL Cholesterol Direct 33 mg/dL (<100)
== END 2024-04-01 11:40 | disposition home or self-care (01) ==
LOC: HO.HMGCLDS 11:39
PROVIDERS: PCP Internal Medicine; Visit Provider Internal Medicine
DX: S67.21XA Crushing injury of right hand, initial encounter (principal); E11.69 Type 2 diabetes mellitus with other specified complication; I10 Essential (primary) hypertension; I48.11 Longstanding persistent atrial fibrillation; J43.1 Panlobular emphysema; F41.1 Generalized anxiety disorder; E78.9 Disorder of lipoprotein metabolism, unspecified; M16.11 Unilateral primary osteoarthritis, right hip; D63.8 Anemia in other chronic diseases classified elsewhere; D69.6 Thrombocytopenia, unspecified; F17.200 Nicotine dependence, unspecified, uncomplicated; Z79.01 Long term (current) use of anticoagulants; Z79.84 Long term (current) use of oral hypoglycemic drugs; Z79.899 Other long term (current) drug therapy; W54.0XXA Bitten by dog, initial encounter; Y93.9 Activity, unspecified; Y92.9 Unspecified place or not applicable; Y99.9 Unspecified external cause status
CPT/HCPCS: 36415; 80053; 83036; 83721; 85025; 96127; 99212

== ENCOUNTER 2024-04-01 11:59 | Outpatient (AMB) | payer MEDICARE, SELFPAY ==
[2024-04-01 12:01] VITALS: BP 130/62; PULSE 79; O2SAT 95; BMI 26.2
--- NOTE | 2024-04-01 12:01 | MHC.PC.OV ---
Vital Signs 04/01/24 12:01 Height 5 ft 9 in Weight 177 lb 2 oz BMI 26.2 BP 130/62 Blood Pressure Location Rt brachial Position Sitting Pulse 79 Pulse Source Pulse Oximeter Pulse Oximetry (%) 95 Oxygen Delivery Method Room Air Intake Visit Reasons: 3 sun f/u Allergies varenicline [From Chantix] Allergy (Intermediate, Verified 04/01/24 12:05) mood swings asprin Allergy (Severe, Uncoded 01/04/24 12:18) Nausea Medication List - Last Reconciled 04/01/24 by Mali Garcia MD albuterol sulfate 0.63 mg (3 mL) inhalation QID PRN 30 days albuterol sulfate 90 mcg/actuation (ProAir HFA) 1 inh inhalation QID PRN 90 days amlodipine 10 mg PO DAILY apixaban (Eliquis) 5 mg PO BID buspirone 15 mg PO QID fluticasone propion-salmeterol 500-50 mcg/dose (Wixela Inhub) 1 inh inhalation Q12H hydrochlorothiazide 25 mg PO DAILY 90 days lisinopril 30 mg PO DAILY 90 days metformin 1,000 mg PO DAILY 90 days metoprolol succinate ER 25 mg PO DAILY nicotine (Nicoderm CQ) 1 patch transdermal Q24H rosuvastatin 10 mg PO DAILY trazodone 200 mg (2 x 100 mg) PO BEDTIME 90 days Tobacco use date assessed: 04/01/24 Dental Screening Dental Screen Date: 04/01/24 Did you have a dental visit in the last 12 months?: No Did you have a dental problem in the last 6 months where you did not have access to dental care?: No Was dental information given to patient?: No HPI 3 mon f/u HPI Details Patient is a 63-year-old gentleman came in today for his regular follow-up Patient was attacked by a Samoan Perea who prolonged a neighbor March 23 And got bit on his right forearm, it was unprovoked attack however the dog is fully vaccinated Patient says that he presented to the front door to excelsior picker someone and as soon as the door open the dog attacked him Patient states that his tetanus vaccine is up-to-date His wounds have healed but he is not able to bend his index finger of right hand If he forces it it hurts in the forearm, I have placed a referral to orthopedic for evaluation on that Patient is due for labs, order was placed last visit but still not done atrial fibrillation : he is taking Eliquis, however 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 Continue to smoke , once again patient was instructed to stop as soon as possible COPD, patient have an updraft machine at home he is also taking maintenance inhaler He has severe osteoarthritis right hip taking Tylenol off and on Follow-up 3 months [facility] Medical History Arthritis Tobacco use disorder Atrial fibrillation Anemia Thrombocytopenia COPD (chronic obstructive pulmonary disease) Diabetes type 2, controlled Hypertension, essential Surgical History History of hip surgery Family History Mother Cancer Father Cancer Social History Housing: House Patient Tobacco Use Status: Current everyday Tobacco user Tobacco use type: Cigarette Cigarettes Per Day: 6 e-Cigarette/Vaping Use: Never Used service: No Current occupational status: retired Current occupation: right hand dominant Cognitive needs: No Hearing needs: No Vision needs: Yes Questionnaire Thrive Questionnaire Date Thrive assessed: 04/01/24 I am a: Patient What is your living situation today?: I choose not to answer this question Within the past 12 months, did the food you bought not last and you didn't have the money to get more?: I choose not to answer this question Within the past 12 months, did you worry whether your food would run out before you got money to buy more?: I choose not to answer this question Do you have trouble paying for medicines?: I choose not to answer this question Do you have trouble getting transportation to medical appointments?: I choose not to answer this question Do you have trouble paying your heating and electricity bill?: I choose not to answer this question Do you have trouble taking care of your child, family member or friend?: I choose not to answer this question Do you have trouble with day-to-day activities such as bathing, preparing meals, shopping, managing finances, etc.?: I choose not to answer this question Are you currently unemployed and looking for a job?: I choose not to answer this question Are you interested in more education?: I choose not to answer this question Please select the resources that you would like help with: None Currently or been in a relationship where the following occur: I choose not to answer THRIVE Score: 0 AUDIT C Alcohol Use Questionnaire (AUDIT-C) 1. How often do you have a drink containing alcohol?: Never 3. How often do you have six or more drinks on one occasion?: Never Total Score: 0 Score Reviewed/Action Taken: Yes KEYANA-7 AMB Questionnaire KEYANA-7 Date KEYANA - 7 assessed: 04/01/24 Feeling nervous, anxious, or on edge: 0 = Not at all Not being able to stop or control worryin = Not at all Worrying too much about different things: 0 = Not at all Trouble relaxin = Not at all Being so restless that it is hard to sit still: 0 = Not at all Becoming easily annoyed or irritable: 0 = Not at all Feeling afraid as if something awful might happen: 0 = Not at all Total KEYANA-7 score (0-4 normal; 5-9 mild; 10-14 moderate; 15-21 severe): 0 Source: Developed by Drs. Derick Thacker, Katie Gibson, David Valenzuela and colleagues, with an educational cristino from [email or web address]. KEYANA-7 Assessment Billing KEYANA-7 Assessment Tool: KEYANA-7 Assessment 88262 Review of Systems Const Denies chills and Denies fever(s) ENT Denies epistaxis and Denies nasal discharge Card Denies chest pain Resp Denies hemoptysis GI Denies diarrhea and Denies nausea Skin/Breast Denies rash Neuro Reports no additional complaints Psych Reports no additional complaints Endo Reports no additional complaints Physical exam (Primary Care) Vital Signs: Last Vital Signs Pulse 79 04/01/24 12:01 BP 130/62 04/01/24 12:01 Pulse Ox 95 04/01/24 12:01 Oxygen Delivery Method Room Air 04/01/24 12:01 BMI result Body Mass Index 26.2 Tobacco/Smoking Status: Tobacco use Status Tobacco use date assessed 04/01/24 04/01/24 12:05 Patient Tobacco Use Status Current everyday Tobacco 04/01/24 12:03 Tobacco use type Cigarette 04/01/24 12:03 e-Cigarette/Vaping Use Never Used 04/01/24 12:03 Thrive Assessment: Date of Thrive Assessment Date Thrive assessed 04/01/24 04/01/24 12:05 Currently or been in a relationship where the following occur: I choose not to answer Const General: cooperative, comfortable and no acute distress Orientation/consciousness: patient oriented x3 HENMT Head: Yes normocephalic Eyes General: appearance normal, both eyes and all related structures Neck Neck: Yes supple Resp Effort & Inspection: normal respiratory effort, no cough and no stridor Cardio Rhythm: regular rhythm Heart sounds: S1 normal heart sound present and S2 normal heart sound present Skin General skin exam: turgor normal Neuro General: patient oriented x3, tone normal and moves all extremities Extrem Hand/finger images: 1. Unable to fully flex without discomfort Right lower extremity: no edema Left lower extremity: no edema Coding Level of Care Code Est Pt Level 4 (46761) Diagnoses Crushing injury of right hand, initial encounter S67.21XA Encounter type: initial encounter Controlled type 2 diabetes mellitus with other specified complication, without long-term current use of insulin E11.69 Diabetes mellitus computer terminal operator insulin use: without computer terminal operator use Diabetes mellitus complication status: with other specified complication Hypertension, essential I10 Longstanding persistent atrial fibrillation I48.11 Atrial fibrillation type: longstanding persistent Tobacco use disorder F17.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 COPD type: emphysema Emphysema type: panlobular Anxiety, generalized F41.1 Lipid disorder E78.9 Additional Codes KEYANA-7 Assessment Billing - KEYANA-7 Assessment Tool: KEYANA-7 Assessment 28434 ([id number]) Assessment & Plan Assessment & Plan (1) Crushing injury of hand, right: Code(s): S67.21XA - Crushing injury of right hand, initial encounter Category: Medical Qualifiers: Encounter type: initial encounter Qualified Code(s): S67.21XA - Crushing injury of right hand, initial encounter (2) Diabetes type 2, controlled: Code(s): E11.9 - Type 2 diabetes mellitus without complications Category: Medical Qualifiers: Diabetes mellitus computer terminal operator insulin use: without chcf use Diabetes mellitus complication status: with other specified complication Qualified Code(s): E11.69 - Type 2 diabetes mellitus with other specified complication (3) Hypertension, essential: Code(s): I10 - Essential (primary) hypertension Category: Medical (4) Atrial fibrillation: Code(s): I48.91 - Unspecified atrial fibrillation Category: Medical Qualifiers: Atrial fibrillation type: longstanding persistent Qualified Code(s): I48.11 - Longstanding persistent atrial fibrillation (5) Tobacco use disorder: Code(s): F17.200 - Nicotine dependence, unspecified, uncomplicated Category: Medical (6) COPD (chronic obstructive pulmonary disease): Code(s): J44.9 - Chronic obstructive pulmonary disease, unspecified Category: Medical Qualifiers: COPD type: emphysema Emphysema type: panlobular Qualified Code(s): J43.1 - Panlobular emphysema (7) Anxiety, generalized: Code(s): F41.1 - Generalized anxiety disorder Category: Medical (8) Lipid disorder: Code(s): E78.9 - Disorder of lipoprotein metabolism, unspecified Category: Medical Plan Patient is a 63-year-old gentleman came in today for his regular follow-up Patient was attacked by a Samoan Perea who prolonged a neighbor March 23 And got bit on his right forearm, it was unprovoked attack however the dog is fully vaccinated Patient says that he presented to the front door to excelsior picker someone and as soon as the door open the dog attacked him Patient states that his tetanus vaccine is up-to-date His wounds have healed but he is not able to bend his index finger of right hand If he forces it it hurts in the forearm, I have placed a referral to orthopedic for evaluation on that Patient is due for labs, order was placed last visit but still not done atrial fibrillation : he is taking Eliquis, however 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 Continue to smoke , once again patient was instructed to stop as soon as possible COPD, patient have an updraft machine at home he is also taking maintenance inhaler He has severe osteoarthritis right hip taking Tylenol off and on Follow-up 3 months Orders: Referrals Orthopedics Referral S67.21XA - Crushing injury of right hand, initial encounter
== END 2024-04-01 14:33 | disposition home or self-care (01) ==
PROVIDERS: PCP Internal Medicine; Visit Provider Internal Medicine
DX: E11.69 Type 2 diabetes mellitus with other specified complication (principal); I48.11 Longstanding persistent atrial fibrillation; J43.1 Panlobular emphysema; S67.21XA Crushing injury of right hand, initial encounter; I10 Essential (primary) hypertension; F17.210 Nicotine dependence, cigarettes, uncomplicated; F41.1 Generalized anxiety disorder; E78.9 Disorder of lipoprotein metabolism, unspecified

== ENCOUNTER 2024-05-12 08:13 | Outpatient (REF) | payer MEDICARE, SELFPAY | END 2024-05-12 08:14 | disposition home or self-care (01) | LOC: HO.HOSX 08:13 | DX: Z13.89 Encounter for screening for other disorder (principal) ==

== ENCOUNTER 2024-08-05 13:44 | Outpatient (AMB) | payer MEDICARE, SELFPAY ==
[2024-08-05 13:58] VITALS: BP 102/58; PULSE 89; RESP 17; TEMP 36.6; O2SAT 95; BMI 25.7
--- NOTE | 2024-08-05 13:58 | A.OFFPC_ITS ---
Vital Signs 08/05/24 13:58 Height 5 ft 9 in Weight 174 lb 2 oz BMI 25.7 BP 102/58 L Blood Pressure Location Lt brachial Position Sitting Respiration 17 Pulse 89 Pulse Source Pulse Oximeter Temp 97.9 F Temp Source Oral Pulse Oximetry (%) 95 Oxygen Delivery Method Room Air Intake Visit Reasons: Annual PE Allergies varenicline [From Chantix] Allergy (Intermediate, Verified 08/05/24 13:58) mood swings asprin Allergy (Severe, Uncoded 01/04/24 12:18) Nausea Medication List - Last Reconciled 08/05/24 by Mali Garcia MD albuterol sulfate 0.63 mg (3 mL) inhalation QID PRN 30 days albuterol sulfate 90 mcg/actuation 1 inh inhalation QID PRN 90 days amlodipine 10 mg PO DAILY apixaban (Eliquis) 5 mg PO BID buspirone 15 mg PO QID fluticasone propion-salmeterol 500-50 mcg/dose (Wixela Inhub) 1 inh inhalation Q12H hydrochlorothiazide 25 mg PO DAILY 90 days lisinopril 30 mg PO DAILY 90 days metformin 1,000 mg PO DAILY 90 days metoprolol succinate ER 25 mg PO DAILY nicotine (Nicoderm CQ) 1 patch transdermal Q24H rosuvastatin 10 mg PO DAILY trazodone 200 mg (2 x 100 mg) PO BEDTIME 90 days Tobacco use date assessed: 08/05/24 Fall risk assessment: No Falls in past year Last assessed Fall Risk: 08/05/24 Dental Screening Dental Screen Date: 08/05/24 Did you have a dental visit in the last 12 months?: Yes Did you have a dental problem in the last 6 months where you did not have access to dental care?: No Was dental information given to patient?: Patient has dentist HPI Annual PE HPI Details History of Present Illness physical exam appointment - The patient is a 64-year-old male pres enting with routine follow-up for chronic conditions. - Blood pressure is routinely monitored at home; recent readings include 120/76 mmHg. The patient is currently on antihypertensive therapy. - Blood glucose management involves metf ormin; - Hyperlipidemia is treated with rosuvas tatin. - Anxiety diagnosis managed with a struc tured medication regimen of buspirone. - Previous colonoscopy findings of small polyps; no new symptoms related to colorectal health reported. - Smoking cessation initiated [facility] one month prior, with a focus on maintaining abstinence. - Arthritis is noted without significant new complaints related to the past accident.. - No gastrointestinal symptoms reported. Health Maintenance - Smoking cessation support for the past month - History of colonoscopy with findings o f small polyps removed - Blood pressure and glucose monitoring instructed Medications - Amlodipine for hypertension - Eliquis for atrial fibrillation - Buspirone for anxiety, noted as not ta rylan four times daily - Hydrochlorothiazide for hypertension - Lisinopril for hypertension - Metformin for Type 2 Diabetes Mellitus - Metoprolol for hypertension - Rosuvastatin for hyperlipidemia - Trazodone for sleep Diagnostic results - Colonoscopy results: Small polyps, rem kenia; results normal Patient Instructions - Continue smoking cessation efforts - Maintain blood sugar levels as prescri bed - Adhere to the current medication regim en - Schedule follow-up visit in Three-clare h - Monitor blood pressure regularly at [facility] Review of Systems - General: No fever no chills - Neurological: No headaches no dizzin ess - Ear nose throat: No sore throat no hearing difficulty no ear pain - Cardiovascular: No syncope, no chest pain, no palpitations - Gastrointestinal: No nausea vomiting or diarrhea - Endocrine: No polyuria polydipsia no heat intolerance - Genitourinary: No dysuria - Skin: No new complaints Physical Exam General: Cooperative, healthy appearing, comfortable, no acute distress Orientation: Patient oriented x3 Head: Normal to inspection Ears: Within normal limit visually Nose: Normal external nose present Face and sinus: Normal facial exam Eyes: Appearance normal, extraocular movement intact pupils reactive Neck: Normal visual inspection and supple Respiratory: Normal respiratory effort and able to speak in complete sentences. Clear to auscultation, no stridor Cardiovascular: S1 and S2, blood pressure running low, around 120/76 at home GI: Normal to inspection. Soft to palpation and nontender, no pain in the belly Skin: Turgor normal, no acute findings Neuro: Patient oriented x3, motor sensory intact, balance intact Extremities: Normal to inspection, no swelling [facility] Medical History Arthritis Tobacco use disorder Atrial fibrillation Anemia Thrombocytopenia COPD (chronic obstructive pulmonary disease) Diabetes type 2, controlled Hypertension, essential Surgical History History of hip surgery Family History Mother Cancer Father Cancer Social History Housing: House Patient Tobacco Use Status: Former Tobacco user Tobacco use type: Cigarette Cigarettes Per Day: 6 e-Cigarette/Vaping Use: Never Used service: No Current occupational status: retired Current occupation: right hand dominant Cognitive needs: No Hearing needs: No Vision needs: Yes Questionnaire PHQ-9 Over the last 2 weeks, how often have you been bothered by any of the following problems? 96311 - PHQ-9 Billing: Patient declined-do not bill Source: Developed by Drs. Derick Thacker, Katie Gibson, David Valenzuela and colleagues, with an educational cristino from [employer]. Thrive Questionnaire Date Thrive assessed: 08/05/24 AUDIT C Alcohol Use Questionnaire (AUDIT-C) 1. How often do you have a drink containing alcohol?: Never 3. How often do you have six or more drinks on one occasion?: Never Total Score: 0 Score Reviewed/Action Taken: Yes KEYANA-7 AMB Questionnaire KEYANA-7 Date KEYANA - 7 assessed: 04/01/24 Source: Developed by Drs. Derick Thacker, Katie Gibson, David Valenzuela and colleagues, with an educational cristino from [employer]. Physical exam (Primary Care) Vital Signs: Last Vital Signs Temp 97.9 F 08/05/24 13:58 Pulse 89 08/05/24 13:58 Resp 17 08/05/24 13:58 BP 102/58 L 08/05/24 13:58 Pulse Ox 95 08/05/24 13:58 Oxygen Delivery Method Room Air 08/05/24 13:58 BMI result Body Mass Index 25.7 Tobacco/Smoking Status: Tobacco use Status Tobacco use date assessed 08/05/24 08/05/24 13:59 Patient Tobacco Use Status Former Tobacco user 08/05/24 14:10 Tobacco use type Cigarette 08/05/24 13:59 e-Cigarette/Vaping Use Never Used 08/05/24 13:59 Thrive Assessment: Date of Thrive Assessment Date Thrive assessed 08/05/24 08/05/24 13:59 Coding Level of Care Code Est Pt Level 3 (58685) Est Pt Prev Care 40-64y(12426) Diagnoses Encounter for general adult medical examination with abnormal findings Z00.01 Controlled type 2 diabetes mellitus with other specified complication, without long-term current use of insulin E11.69 Diabetes mellitus complication status: with other specified complication Diabetes mellitus care home insulin use: without care home use Hypertension, essential I10 Longstanding persistent atrial fibrillation I48.11 Atrial fibrillation type: longstanding persistent Tobacco use disorder F17.200 Thrombocytopenia D69.6 Panlobular emphysema J43.1 COPD type: emphysema Emphysema type: panlobular Anxiety, generalized F41.1 Lipid disorder E78.9 Smokers' cough J41.0 Assessment & Plan Assessment & Plan (1) Encounter for general adult medical examination with abnormal findings: Code(s): Z00.01 - Encounter for general adult medical examination with abnormal findings Category: Medical (2) Diabetes type 2, controlled: Code(s): E11.9 - Type 2 diabetes mellitus without complications Category: Medical Qualifiers: Diabetes mellitus complication status: with other specified complication Diabetes mellitus care home insulin use: without joint terminal attack controller use Qualified Code(s): E11.69 - Type 2 diabetes mellitus with other specified complication (3) Hypertension, essential: Code(s): I10 - Essential (primary) hypertension Category: Medical (4) Atrial fibrillation: Code(s): I48.91 - Unspecified atrial fibrillation Category: Medical Qualifiers: Atrial fibrillation type: longstanding persistent Qualified Code(s): I48.11 - Longstanding persistent atrial fibrillation (5) Tobacco use disorder: Code(s): F17.200 - Nicotine dependence, unspecified, uncomplicated Category: Medical (6) Thrombocytopenia: Code(s): D69.6 - Thrombocytopenia, unspecified Category: Medical (7) COPD (chronic obstructive pulmonary disease): Code(s): J44.9 - Chronic obstructive pulmonary disease, unspecified Category: Medical Qualifiers: COPD type: emphysema Emphysema type: panlobular Qualified Code(s): J43.1 - Panlobular emphysema (8) Anxiety, generalized: Code(s): F41.1 - Generalized anxiety disorder Category: Medical (9) Lipid disorder: Code(s): E78.9 - Disorder of lipoprotein metabolism, unspecified Category: Medical (10) Smokers' cough: Code(s): J41.0 - Simple chronic bronchitis Category: Medical Plan History of Present Illness physical exam appointment - The patient is a 64-year-old male presenting with routine follow-up for chronic conditions. - Blood pressure is routinely monitored at home; recent readings include 120/76 mmHg. The patient is currently on antihypertensive therapy. - Blood glucose management involves metformin; - Hyperlipidemia is treated with rosuvastatin. - Anxiety diagnosis managed with a structured medication regimen of buspirone. - Previous colonoscopy findings of small polyps; no new symptoms related to colorectal health reported. - Smoking cessation initiated approximately one month prior, with a focus on maintaining abstinence. - Arthritis is noted without significant new complaints related to the past accident.. - No gastrointestinal symptoms reported. Health Maintenance - Smoking cessation support for the past month - History of colonoscopy with findings of small polyps removed - Blood pressure and glucose monitoring instructed Medications - Amlodipine for hypertension - Eliquis for atrial fibrillation - Buspirone for anxiety, noted as not taken four times daily - Hydrochlorothiazide for hypertension - Lisinopril for hypertension - Metformin for Type 2 Diabetes Mellitus - Metoprolol for hypertension - Rosuvastatin for hyperlipidemia - Trazodone for sleep Diagnostic results - Colonoscopy results: Small polyps, removed; results normal Patient Instructions - Continue smoking cessation efforts - Maintain blood sugar levels as prescribed - Adhere to the current medication regimen - Schedule follow-up visit in Three-month - Monitor blood pressure regularly at home follow-up 3 months physical exam 1 year patient had labs done today reports are not available at this point Orders: Orders Comprehensive Met. Panel Today D69.6 - Thrombocytopenia, unspecified, E11.69 - Type 2 diabetes mellitus with other specified complication, E66.09 - Other obesity due to excess calories, E78.9 - Disorder of lipoprotein metabolism, unspecified, F17.200 - Nicotine dependence, unspecified, uncomplicated, F41.1 - Generalized anxiety disorder, I10 - Essential (primary) hypertension, I48.11 - Longstanding persistent atrial fibrillation, J41.0 - Simple chronic bronchitis, J43.1 - Panlobular emphysema, Z00.01 - Encounter for general adult medical examination with abnormal findings Hemoglobin A1c Today D69.6 - Thrombocytopenia, unspecified, E11.69 - Type 2 diabetes mellitus with other specified complication, E66.09 - Other obesity due to excess calories, E78.9 - Disorder of lipoprotein metabolism, unspecified, F17.200 - Nicotine dependence, unspecified, uncomplicated, F41.1 - Generalized anxiety disorder, I10 - Essential (primary) hypertension, I48.11 - Longstanding persistent atrial fibrillation, J41.0 - Simple chronic bronchitis, J43.1 - Panlobular emphysema, Z00.01 - Encounter for general adult medical examination with abnormal findings Microalbumin, Random (w Creat) Today D69.6 - Thrombocytopenia, unspecified, E11.69 - Type 2 diabetes mellitus with other specified complication, E66.09 - Other obesity due to excess calories, E78.9 - Disorder of lipoprotein metabolism, unspecified, F17.200 - Nicotine dependence, unspecified, uncomplicated, F41.1 - Generalized anxiety disorder, I10 - Essential (primary) hypertension, I48.11 - Longstanding persistent atrial fibrillation, J41.0 - Simple chronic bronchitis, J43.1 - Panlobular emphysema, Z00.01 - Encounter for general adult medical examination with abnormal findings Complete Blood Count Auto Diff Today D69.6 - Thrombocytopenia, unspecified, E11.69 - Type 2 diabetes mellitus with other specified complication, E66.09 - Other obesity due to excess calories, E78.9 - Disorder of lipoprotein metabolism, unspecified, F17.200 - Nicotine dependence, unspecified, uncomplicated, F41.1 - Generalized anxiety disorder, I10 - Essential (primary) hypertension, I48.11 - Longstanding persistent atrial fibrillation, J41.0 - Simple chronic bronchitis, J43.1 - Panlobular emphysema, Z00.01 - Encounter for general adult medical examination with abnormal findings LDL Cholesterol Direct Today D69.6 - Thrombocytopenia, unspecified, E11.69 - Type 2 diabetes mellitus with other specified complication, E66.09 - Other obesity due to excess calories, E78.9 - Disorder of lipoprotein metabolism, unspecified, F17.200 - Nicotine dependence, unspecified, uncomplicated, F41.1 - Generalized anxiety disorder, I10 - Essential (primary) hypertension, I48.11 - Longstanding persistent atrial fibrillation, J41.0 - Simple chronic bronchitis, J43.1 - Panlobular emphysema, Z00.01 - Encounter for general adult medical examination with abnormal findings
--- OUTSIDE RECORDS SUMMARY | 2024-08-05 16:21 | XMS_ITS | Clinical Summary ---
Author Organization [facility] Address [address] [place] [address] Care Team Providers Care Event Promotions Coordinator Name Role Phone Unavailable Primary Care Provider Unavailabl e Source Comments PLEASE NOTE, if this patient is a minor, it may be UNLAWFUL to discuss sensitive information that is contained in these records (such as FAMILY PLANNING, MENTAL HEALTH or SUBSTANCE ABUSE) with the minor patient's parent or other person without the patient's specific authorization.[facility] Medications No known medications Active Problems No known active problems Social History Tobacco Use Types Packs/Day Years Used Date Smoking Tobacco: Every Day Cigarettes Smokeless Tobacco: Never Tobacco Cessation:Ready to Q uit: Not Asked; Counseling Given: Not Answered Social Connections Answer Date Recorded Connectedness 0 01/18/2024 Financial Resource Strain Answer Date R ecorded Financial Resource Strain 0 2021 Stress Answer Date Recorded Stress 0 12/29/2021 Physical Activity Answer Date Recorded Physical Activity 0 12/29/2021 Food Insecurity Answer Date Recorded Food 0 01/31/2024 Transportation Needs Answer Date Record ed Transportation 0 12/29/2021 Housing Stability Answer Date Recorded Housing 0 12/29/2021 Safety and Environment Answer Date Jose Martin rded Safety 0 12/29/2021 Utilities Answer Date Recorded Utilities 0 12/29/2021 Employment Answer Date Recorded Stress 0 01/18/2024 Sex and Gender Information Value Date Recorded Sex Assigned at Not on file Legal Sex Male 11:53 AM PDT Gender Identity Not on file Sexual Orientation Not on file Last Filed Vital Signs Vital Sign Reading Time Taken Comments Blood Pressure 118/65 12/29/2021 10:28 AM EDT Pulse 73 12/29/2021 10:28 AM EDT Temperature - - Respiratory Rate - - Oxygen Saturation - - Inhaled Oxygen Concentration - - Weight - - Height - - Body Mass Index - - Plan of Treatment Health Maintenance Due Date Last Done Comments Diabetes Screening 1960 Hepatitis C Screening 1960 Lipid Screening 1960 Tobacco Cessation Counseling (#1) 1960 Tobacco Screening 1960 HIV Screening 1975 Annual Preventive Care Visit 1978 CT Colonography 2005 Colonoscopy 2005 Colorectal Cancer Screening 2005 FIT/gFOBT 2005 Fecal DNA 2005 Flexible Sigmoidoscopy 2005 Imm-Zoster, Recombinant (1 of 2) 2010 Imm-Pneumococcal (2 of 2 - PCV) 07/21/2017 7 Imm-DTaP/Tdap/Td (1 - Tdap) 03/09/2018 03/08/2018 Hypertension Screening (#1) 12/29/2022 [id number] ( season) 2024 05/02/2021, 10/01/2020, 09/03/2020 Imm-Influenza (#1) 2024 Alcohol and Drug Screen 05/07/2024 Depression Annual Screen 05/07/2024 Insurance [place]
--- OUTSIDE RECORDS SUMMARY | 2024-08-05 16:21 | XMS_ITS | Encounter Summary ---
Author Organization [facility] Address [address] [place] [address] Care Team Providers Care Label Paster Name Role Phone Unavailable Primary Care Provider Unavailabl e Encounter Details Date Type Department Care Team (Late st Contact Info) Description 02/07/2022 Dental Interim Note [facility] [address] [place] [address] Katie Raza DMD [address] [place], [place] [id number] Social History Tobacco Use Types Packs/Day Years Used Date Smoking Tobacco: Every Day Cigarettes Smokeless Tobacco: Never Social Connections Answer Date Recorded Social Connections and Isolation 0 12/29/2021 Financial Resource Strain Answer Date R ecorded Financial Resource Strain 0 2021 Stress Answer Date Recorded Stress 0 12/29/2021 Physical Activity Answer Date Recorded Physical Activity 0 12/29/2021 Food Insecurity Answer Date Recorded Food 0 12/29/2021 Transportation Needs Answer Date Record ed Transportation 0 12/29/2021 Housing Stability Answer Date Recorded Housing 0 12/29/2021 Safety and Environment Answer Date Jose Martin rded Safety 0 12/29/2021 Utilities Answer Date Recorded Utilities 0 12/29/2021 Employment Answer Date Recorded Employment 0 12/29/2021 Sex and Gender Information Value Date Recorded Sex Assigned at Not on file Legal Sex Male 11:53 AM PDT Gender Identity Not on file Sexual Orientation Not on file documented as of this encounter Plan of Treatment Not on file documented as of this encounter Visit Diagnoses Not on filedocumented in this encounter
== END 2024-08-05 14:41 | disposition home or self-care (01) ==
LOC: HO.HMCC 13:44
PROVIDERS: PCP Internal Medicine; Visit Provider Internal Medicine
DX: Z00.00 Encounter for general adult medical examination without abnormal findings (principal); E11.69 Type 2 diabetes mellitus with other specified complication; I48.11 Longstanding persistent atrial fibrillation; D69.6 Thrombocytopenia, unspecified; J43.1 Panlobular emphysema; J41.0 Simple chronic bronchitis; I10 Essential (primary) hypertension; F17.200 Nicotine dependence, unspecified, uncomplicated; F41.1 Generalized anxiety disorder; E78.9 Disorder of lipoprotein metabolism, unspecified

== ENCOUNTER → 2024-08-05 13:44 | Outpatient (BNVA) | payer MEDICARE, SELFPAY | PROVIDERS: PCP Internal Medicine; Visit Provider Internal Medicine | DX: Z00.01 Encounter for general adult medical examination with abnormal findings (principal); E11.69 Type 2 diabetes mellitus with other specified complication; I10 Essential (primary) hypertension; I48.11 Longstanding persistent atrial fibrillation; D69.6 Thrombocytopenia, unspecified; J43.1 Panlobular emphysema; F41.1 Generalized anxiety disorder; E78.9 Disorder of lipoprotein metabolism, unspecified; J41.0 Simple chronic bronchitis; F17.200 Nicotine dependence, unspecified, uncomplicated; Z71.6 Tobacco abuse counseling | CPT/HCPCS: 99396 ==

== ENCOUNTER 2024-12-19 11:28 | Outpatient (REF) | payer MEDICARE, SELFPAY ==
[2024-12-19 13:26] LABS: MANUAL DIFF FLAG NO
[2024-12-19 13:41] LABS: Hematocrit 47.5 % (42.0-52.0); Hemoglobin 15.9 g/dl (14.0-18.0); Imm Gran Abs Auto 0.02 X10*3/uL (0.00-0.03); Imm Gran Pct Auto 0.2 % (0.0-0.4); Lymphocytes Absolute Auto 3.2 X10*3/uL (1.2-4.9); Mean Corpuscular HGB Conc 33.5 g/dl (31.0-36.0); Mean Corpuscular Hemoglobin 29.7 pg (27.0-33.0); Mean Corpuscular Volume 88.8 fL (80.0-98.0); NRBC Abs Auto 0.000 X10*3/uL (0.0-0.012); NRBC Pct Auto 0.0 /100WBC (0.0-0.2); Platelet Count 200 X10*3/uL (160-400); Red Blood Count 5.35 X10*6/uL (4.60-5.80); White Blood Count 9.2 X10*3/uL (4.8-10.8)
[2024-12-19 13:53] LABS: Hemoglobin A1C 179.6633 umol/L; Total Hemoglobin (HGBA1C) 4149.3028 umol/L
[2024-12-19 14:02] LABS: Alanine Aminotransferase 26 U/L (0-40); Albumin Level 4.5 g/dL (3.5-5.0); Alkaline Phosphatase 72 U/L (39-117); Anion Gap 14 (12-20); Aspartate Amino Transferase 25 U/L (5-37); Blood Urea Nitrogen 18 mg/dL (9-16); Calcium 9.4 mg/dL (8.4-10.2); Carbon Dioxide 26 mmol/L (22-29); Chloride 103 mmol/L (96-108); Estimated Glomerular Filt Rate > 60; Potassium 4.3 mmol/L (3.3-5.1); Sodium 139 mmol/L (135-145); Total Protein 6.9 g/dL (6.5-8.0)
== END 2024-12-19 11:29 | disposition home or self-care (01) ==
LOC: HO.HMGCLDS 11:28
PROVIDERS: PCP Internal Medicine; Visit Provider Internal Medicine
DX: Z00.01 Encounter for general adult medical examination with abnormal findings (principal); I10 Essential (primary) hypertension; J43.1 Panlobular emphysema; I48.11 Longstanding persistent atrial fibrillation; E78.9 Disorder of lipoprotein metabolism, unspecified; F41.1 Generalized anxiety disorder; J41.0 Simple chronic bronchitis; Z79.899 Other long term (current) drug therapy; E66.09 Other obesity due to excess calories; F17.200 Nicotine dependence, unspecified, uncomplicated; D69.6 Thrombocytopenia, unspecified; E11.69 Type 2 diabetes mellitus with other specified complication; Z71.6 Tobacco abuse counseling
CPT/HCPCS: 36415; 80053; 83036; 83721; 85025; 96127; 99212

== ENCOUNTER 2024-12-19 11:28 | Outpatient (AMB) | payer MEDICARE, SELFPAY ==
--- NOTE | 2024-12-19 11:30 | MHC.PC.OV ---
Vital Signs 12/19/24 11:31 Height 5 ft 9 in Weight 180 lb BMI 26.6 BP 112/60 Blood Pressure Location Lt brachial Position Sitting Pulse 55 Pulse Source Pulse Oximeter Pulse Oximetry (%) 94 Intake Visit Reasons: med management Allergies varenicline (From Chantix) Allergy (Intermediate, Verified 12/19/24 11:31) mood swings asprin Allergy (Severe, Uncoded 01/04/24 12:18) Nausea Medication List - Last Reconciled 12/19/24 by Mali Garcia MD albuterol sulfate 0.63 mg (3 mL) inhalation QID PRN 30 days albuterol sulfate 90 mcg/actuation 1 inh inhalation QID PRN 90 days amlodipine 10 mg PO DAILY apixaban (Eliquis) 5 mg PO BID buspirone 15 mg PO QID fluticasone propion-salmeterol 500-50 mcg/dose (Wixela Inhub) 1 inh inhalation Q12H hydrochlorothiazide 25 mg PO DAILY 90 days lisinopril 30 mg PO DAILY 90 days metformin 1,000 mg PO DAILY 90 days metoprolol succinate ER 25 mg PO DAILY rosuvastatin 10 mg PO DAILY trazodone 200 mg (2 x 100 mg) PO BEDTIME 90 days Tobacco use date assessed: 08/05/24 Fall risk assessment: No Falls in past year Last assessed Fall Risk: 12/19/24 Dental Screening Dental Screen Date: 08/05/24 HPI med management HPI Details Chief Complaint Longitudinal care visit History of Present Illness The patient is a 64-year-old male with a 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 Atrial Fibrillation: - Diagnosed with atrial fibrillation; has not seen solar development engineer since 2022 - Was informed about the importance of regular follow-ups if on medication. Chronic Obstructive Pulmonary Disease (COPD): - Known diagnosis of COPD for several years. - Reports mild shortness of breath, but less severe than previously experienced. Inhaler has not been filled in over a year - No recent pulmonary function tests conducted, although there is interest in assessing current status through testing. Medications: - Amlodipine: for hypertension - Eliquis (apixaban): for atrial fibrillation - Buspirone: for anxiety - Hydrochlorothiazide: for hypertension - Lisinopril: for hypertension - Metformin: for diabetes - Metoprolol: for hypertension - Rosuvastatin: for hyperlipidemia - Trazodone: for sleep aid Social History: - Smoking: Smokes very little currently. - Residency: Lives near [place], close to [facility]. Patient Instructions - Schedule an appointment with the solar development engineer to review medications and condition. - Arrange for a pulmonary function test at [facility]. - Continue current medications as prescribed. - Monitor symptoms and follow up if conditions worsen. Follow-up 3-4 months Review of Systems - General: No fever no chills - Neurological: No headaches no dizziness - Ear nose throat: No sore throat no hearing difficulty no ear pain - Cardiovascular: No syncope, no chest pain, no palpitations - Gastrointestinal: No nausea vomiting or diarrhea - Endocrine: No polyuria polydipsia no heat intolerance - Genitourinary: No dysuria , no blood in urine Physical Exam General: No acute distress HEENT: No acute findings Neck: Supple Respiratory system: Able to talk in full sentences, no audible wheeze, fair air entry Cardiovascular: S1-S2 irregularly irregular Gastrointestinal: No pain Extremities: No new findings 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 FRONT: Alert awake oriented x3 motor sensory intact Skin: Normal turgor [facility] Medical History Arthritis Tobacco use disorder Atrial fibrillation Anemia Thrombocytopenia COPD (chronic obstructive pulmonary disease) Diabetes type 2, controlled Hypertension, essential Surgical History History of hip surgery Family History Mother Cancer Father Cancer Social History Housing: House Patient Tobacco Use Status: Former Tobacco user Tobacco use type: Cigarette Cigarettes Per Day: 6 e-Cigarette/Vaping Use: Never Used service: No Current occupational status: retired Current occupation: right hand dominant Cognitive needs: No Hearing needs: No Vision needs: Yes Questionnaire PHQ-9 Over the last 2 weeks, how often have you been bothered by any of the following problems? 1. Little interest or pleasure in doing things: not at all 2. Feeling down, depressed, or hopeless: not at all 3. Trouble falling or staying asleep, or sleeping too much: not at all 4. Feeling tired or having little energy: not at all 5. Poor appetite or overeating: not at all 6. Feeling bad about yourself - or that you are a failure or have let yourself or your family down: not at all 7. Trouble concentrating on things, such as reading the newspaper or watching television: not at all 8. Moving or speaking so slowly that other people could have noticed. Or the opposite - being so fidgety or restless that you have been moving around a lot more than usual: not at all 9. Thoughts that you would be better off or of hurting yourself in some way: not at all Total score: 0 Depression Screening Interpretation: Negative Depression Screening Done: Yes 35398 - PHQ-9 Billing: Yes Source: Developed by Drs. Derick Thacker, Katie Gibson, David Valenzuela and colleagues, with an educational cristino from [employer]. Thrive Questionnaire Date Thrive assessed: 12/19/24 I am a: Patient What is your living situation today?: I have a steady place to live Within the past 12 months, did the food you bought not last and you didn't have the money to get more?: Sometimes True Within the past 12 months, did you worry whether your food would run out before you got money to buy more?: Sometimes True Do you have trouble paying for medicines?: Yes Do you have trouble getting transportation to medical appointments?: No Do you have trouble paying your heating and electricity bill?: Yes Do you have trouble taking care of your child, family member or friend?: No Do you have trouble with day-to-day activities such as bathing, preparing meals, shopping, managing finances, etc.?: No Are you currently unemployed and looking for a job?: No Are you interested in more education?: No Please select the resources that you would like help with: Paying for medicine Currently or been in a relationship where the following occur: No concerns reported THRIVE Score: 3 AUDIT C Alcohol Use Questionnaire (AUDIT-C) 1. How often do you have a drink containing alcohol?: Never 3. How often do you have six or more drinks on one occasion?: Never Total Score: 0 Score Reviewed/Action Taken: Yes KEYANA-7 AMB Questionnaire KEYANA-7 Date KEYANA - 7 assessed: 12/19/24 Feeling nervous, anxious, or on edge: 0 = Not at all Not being able to stop or control worryin = Not at all Worrying too much about different things: 0 = Not at all Trouble relaxin = Not at all Being so restless that it is hard to sit still: 0 = Not at all Becoming easily annoyed or irritable: 0 = Not at all Feeling afraid as if something awful might happen: 0 = Not at all Total KEYANA-7 score (0-4 normal; 5-9 mild; 10-14 moderate; 15-21 severe): 0 Source: Developed by Drs. Derick Thacker, Katie Gibson, David Valenzuela and colleagues, with an educational cristino from [employer]. KEYANA-7 Assessment Billing KEYANA-7 Assessment Tool: KEYANA-7 Assessment 41380 Physical exam (Primary Care) Vital Signs: Last Vital Signs Pulse 55 12/19/24 11:31 BP 112/60 12/19/24 11:31 Pulse Ox 94 12/19/24 11:31 BMI result Body Mass Index 26.6 Tobacco/Smoking Status: Tobacco use Status Tobacco use date assessed 08/05/24 12/19/24 11:30 Patient Tobacco Use Status Former Tobacco user 12/19/24 11:30 Tobacco use type Cigarette 12/19/24 11:30 e-Cigarette/Vaping Use Never Used 12/19/24 11:30 PHQ-9: PHQ-9 Score PHQ-9: Total score 0 12/19/24 11:51 Depression Screening Interpretation: Negative Thrive Assessment: Date of Thrive Assessment Date Thrive assessed 12/19/24 12/19/24 11:31 Currently or been in a relationship where the following occur: No concerns reported Results AMB Hemoglobin A1c AMB Hemoglobin A1c 6.0 % Last Edit by Nash Quintana CMA on 12/19/24 11:46 Results Reviewed Results Reviewed: Laboratory Last Values Hgb A1c (Clinic) 6.0 % (4.0-6.0) 12/19/24 11:45 Coding Level of Care Code Est Pt Level 4 (88391) Complex EM visit Add On G2211 Diagnoses Hypertension, essential I10 Diabetes type 2, controlled E11.9 Panlobular emphysema J43.1 COPD type: emphysema Emphysema type: panlobular Longstanding persistent atrial fibrillation I48.11 Atrial fibrillation type: longstanding persistent Lipid disorder E78.9 Tobacco use disorder F17.200 Anxiety, generalized F41.1 Smokers' cough J41.0 Additional Codes KEYANA-7 Assessment Billing - KEYANA-7 Assessment Tool: KEYANA-7 Assessment 84180 ([id number]) PHQ-9 - 90789 - PHQ-9 Billing: Yes ([id number]) Assessment & Plan Assessment & Plan (1) Hypertension, essential: Code(s): I10 - Essential (primary) hypertension Category: Medical (2) Diabetes type 2, controlled: Code(s): E11.9 - Type 2 diabetes mellitus without complications Category: Medical (3) COPD (chronic obstructive pulmonary disease): Code(s): J44.9 - Chronic obstructive pulmonary disease, unspecified Category: Medical Qualifiers: COPD type: emphysema Emphysema type: panlobular Qualified Code(s): J43.1 - Panlobular emphysema (4) Atrial fibrillation: Code(s): I48.91 - Unspecified atrial fibrillation Category: Medical Qualifiers: Atrial fibrillation type: longstanding persistent Qualified Code(s): I48.11 - Longstanding persistent atrial fibrillation (5) Lipid disorder: Code(s): E78.9 - Disorder of lipoprotein metabolism, unspecified Category: Medical (6) Tobacco use disorder: Code(s): F17.200 - Nicotine dependence, unspecified, uncomplicated Category: Medical (7) Anxiety, generalized: Code(s): F41.1 - Generalized anxiety disorder Category: Medical (8) Smokers' cough: Code(s): J41.0 - Simple chronic bronchitis Category: Medical Plan History of Present Illness physical exam appointment - The patient is a 64-year-old male presenting with routine follow-up for chronic conditions. - Blood pressure is routinely monitored at home; recent readings include 120/76 mmHg. The patient is currently on antihypertensive therapy. - Blood glucose management involves metformin; - Hyperlipidemia is treated with rosuvastatin. - Anxiety diagnosis managed with a structured medication regimen of buspirone. - Previous colonoscopy findings of small polyps; no new symptoms related to colorectal health reported. - Smoking cessation initiated approximately one month prior, with a focus on maintaining abstinence. - Arthritis is noted without significant new complaints related to the past accident.. - No gastrointestinal symptoms reported. Health Maintenance - Smoking cessation support for the past month - History of colonoscopy with findings of small polyps removed - Blood pressure and glucose monitoring instructed Medications - Amlodipine for hypertension - Eliquis for atrial fibrillation - Buspirone for anxiety, noted as not taken four times daily - Hydrochlorothiazide for hypertension - Lisinopril for hypertension - Metformin for Type 2 Diabetes Mellitus - Metoprolol for hypertension - Rosuvastatin for hyperlipidemia - Trazodone for sleep Diagnostic results - Colonoscopy results: Small polyps, removed; results normal Patient Instructions - Continue smoking cessation efforts - Maintain blood sugar levels as prescribed - Adhere to the current medication regimen - Schedule follow-up visit in Three-month - Monitor blood pressure regularly at home follow-up 3 months physical exam 1 year patient had labs done today reports are not available at this point Orders: Orders PFT pulmonary function test Today J43.1 - Panlobular emphysema AMB Hemoglobin A1c Today Z13.9 - Encounter for screening, unspecified Referrals Cardiology Referral E78.9 - Disorder of lipoprotein metabolism, unspecified, I10 - Essential (primary) hypertension, I48.11 - Longstanding persistent atrial fibrillation Medications: Refilled trazodone 200 mg (2 x 100 mg) PO BEDTIME 180 tabs 0RF 90 days metformin 1,000 mg PO DAILY 90 tabs 0RF 90 days hydrochlorothiazide 25 mg PO DAILY 90 tabs 0RF 90 days fluticasone propion-salmeterol 500-50 mcg/dose (Navarroxela Inhub) 1 inh inhalation Q12H 60 ea 3RF amlodipine 10 mg PO DAILY 90 tabs 0RF rosuvastatin 10 mg PO DAILY 90 tabs 3RF lisinopril 30 mg PO DAILY 90 tabs 0RF 90 days
[2024-12-19 11:31] VITALS: BP 112/60; PULSE 55; O2SAT 94; BMI 26.6
--- OUTSIDE RECORDS SUMMARY | 2024-12-19 11:31 | XMS_ITS | Clinical Summary ---
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 Name Role Phone Unavailable Primary Care Provider [...] Health Maintenance Due Date Last Done Comments Anxiety Screening 1960 Diabetes Screening 1960 Hepatitis C Screening 1960 Lipid Screening 1960 Tobacco Cessation Counseling (#1) 1960 Tobacco Screening [address] Colonography 2005 Colonoscopy 2005 Colorectal Cancer Screening 2005 FIT/gFOBT 2005 Fecal DNA 2005 Flexible Sigmoidoscopy 2005 Imm-Zoster, Recombinant (1 of 2) 2010 Imm-Pneumococcal 50+ (2 of 2 - PCV) 07/21/201707/21 Imm-DTaP/Tdap/Td (1 - Tdap) 03/09/2018 03/08/2018 Hypertension Screening (#1) 12/29/2022 [id number] ( season) 2024 05/02/2021, 10/01/2020, 09/03/2020 Alcohol and Drug Screen 05/07/2024 Depression Annual Screen 05/07/2024 Imm-Influenza (#1) 2025 Insurance [place]
== END 2024-12-19 15:58 | disposition home or self-care (01) ==
LOC: HO.HMCC 11:29
PROVIDERS: PCP Internal Medicine; Visit Provider Internal Medicine
DX: E11.9 Type 2 diabetes mellitus without complications (principal); J43.1 Panlobular emphysema; I48.11 Longstanding persistent atrial fibrillation; J41.0 Simple chronic bronchitis; I10 Essential (primary) hypertension; E78.9 Disorder of lipoprotein metabolism, unspecified; F17.200 Nicotine dependence, unspecified, uncomplicated; F41.1 Generalized anxiety disorder

== ENCOUNTER 2025-05-06 08:56 | Outpatient (AMB) | payer MEDICARE, SELFPAY ==
[2025-05-06 08:57] VITALS: BP 136/80; PULSE 72; RESP 18; O2SAT 96; BMI 27.1
--- NOTE | 2025-05-06 08:57 | MHC.PC.OV ---
Vital Signs 05/06/25 08:57 Height 5 ft 9 in Weight 183 lb 4 oz BMI 27.1 BP 136/80 Blood Pressure Location Lt brachial Position Sitting Respiration 18 Pulse 72 Pulse Source Pulse Oximeter Pulse Oximetry (%) 96 Oxygen Delivery Method Room Air Intake Visit Reasons: f/u anxiety Allergies varenicline (From Chantix) Allergy (Intermediate, Verified 05/06/25 08:57) mood swings asprin Allergy (Severe, Uncoded 01/04/24 12:18) Nausea Medication List - Last Reconciled 05/06/25 by Mali Garcia MD albuterol sulfate 0.63 mg (3 mL) inhalation QID PRN 30 days albuterol sulfate 90 mcg/actuation 1 inh inhalation QID PRN 90 days amlodipine 10 mg PO DAILY apixaban (Eliquis) 5 mg PO BID buspirone 15 mg PO QID fluticasone propion-salmeterol 500-50 mcg/dose (Wixela Inhub) 1 inh inhalation Q12H hydrochlorothiazide 25 mg PO DAILY 90 days lisinopril 30 mg PO DAILY 90 days metformin 1,000 mg PO DAILY 90 days metoprolol succinate ER 25 mg PO DAILY rosuvastatin 10 mg PO DAILY trazodone 200 mg (2 x 100 mg) PO BEDTIME 16 days Tobacco use date assessed: 05/06/25 Fall risk assessment: No Falls in past year Last assessed Fall Risk: 05/06/25 Dental Screening Dental Screen Date: 05/06/25 Did you have a dental visit in the last 12 months?: No Did you have a dental problem in the last 6 months where you did not have access to dental care?: No Was dental information given to patient?: Patient declined HPI HPI Comments History of Present Illness Details History of Present Illness The patient is a 65 year old male presenting for a follow-up appointment and medication refills. Hypertension: - The patient's blood pressure is controlled with a reading of 136/80 mmHg at this visit. - He is prescribed amlodipine 10 mg, hydrochlorothiazide 25 mg, lisinopril 30 mg, and metoprolol 25 mg. Type 2 Diabetes Mellitus: - The patient is taking metformin 1 gram daily. - A fingerstick glucose test was performed during the visit and his glucose is noted to be usually controlled. - Labs from December showed a hemoglobin A1c of 6.1. Anxiety: - The patient is taking buspirone 15 mg four times a day (QID) and requested a refill. Insomnia: - He takes trazodone 200 mg daily and requested a refill. Atrial Fibrillation: - The patient underwent an atrial fibrillation ablation in [address] Wallace. - He is taking Eliquis, prescribed by cardiology. - He has since switched to a different senior java web developer, [facility] cardio, but we have no notes from them Chronic Obstructive Pulmonary Disease: - The patient has a known diagnosis of COPD and reports occasional difficulty breathing. - He is not currently using an inhaler but expressed interest in obtaining one. Hyperlipidemia: - He takes rosuvastatin 10 mg. - His LDL was 54 in December. Tobacco Use Disorder: - The patient admits to smoking recently. Medical History: - Hypertension - Type 2 Diabetes Mellitus - Anxiety - Insomnia - Hyperlipidemia - Chronic Obstructive Pulmonary Disease - History of Atrial Fibrillation Surgical History: - Atrial fibrillation ablation in 2022 Medications: - Amlodipine 10 mg for hypertension - Buspirone 15 mg four times daily for anxiety - Hydrochlorothiazide 25 mg for hypertension - Lisinopril 30 mg for hypertension - Metformin 1 gram daily for diabetes - Metoprolol 25 mg for A fib [ by cardio ] - Rosuvastatin 10 mg for hyperlipidemia - Trazodone 200 mg daily for insomnia - Eliquis, prescribed by cardiology for atrial fibrillation Social History: - Tobacco Use: The patient reports smoking recently. - Living Situation: The patient lives with his and expressed concern for her health. Family History: - The patient reports his has a history of significant alcohol use, which she stopped a few years ago. - He is concerned his is showing signs of dementia, including memory loss, excessive sleeping, and behavioral changes. Diagnostic Results: - Lab results from December: - CBC: No anemia. - Electrolytes: Stable. - Kidney function: Stable. - Hemoglobin A1c: 6.1. - Liver enzymes: Within normal limits. - LDL: 54. - Current visit: - Blood pressure: 136/80 mmHg. - Fingerstick glucose test: Performed. [facility] Medical History Arthritis Tobacco use disorder Atrial fibrillation Anemia Thrombocytopenia COPD (chronic obstructive pulmonary disease) Diabetes type 2, controlled Hypertension, essential Surgical History History of hip surgery Family History Mother Cancer Father Cancer Social History Housing: House Patient Tobacco Use Status: Former Tobacco user Tobacco use type: Cigarette Cigarettes Per Day: 6 e-Cigarette/Vaping Use: Never Used service: No Current occupational status: retired Current occupation: right hand dominant Cognitive needs: No Hearing needs: No Vision needs: Yes Questionnaire Thrive Questionnaire Date Thrive assessed: 12/19/24 I am a: Patient What is your living situation today?: I have a steady place to live Within the past 12 months, did the food you bought not last and you didn't have the money to get more?: Sometimes True Within the past 12 months, did you worry whether your food would run out before you got money to buy more?: Sometimes True Do you have trouble paying for medicines?: Yes Do you have trouble getting transportation to medical appointments?: No Do you have trouble paying your heating and electricity bill?: Yes Do you have trouble taking care of your child, family member or friend?: No Do you have trouble with day-to-day activities such as bathing, preparing meals, shopping, managing finances, etc.?: No Are you currently unemployed and looking for a job?: No Are you interested in more education?: No Currently or been in a relationship where the following occur: No concerns reported THRIVE Score: 3 AUDIT C Alcohol Use Questionnaire (AUDIT-C) 1. How often do you have a drink containing alcohol?: Never 3. How often do you have six or more drinks on one occasion?: Never Total Score: 0 Score Reviewed/Action Taken: Yes KEYANA-7 AMB Questionnaire KEYANA-7 Date KEYANA - 7 assessed: 12/19/24 Source: Developed by Drs. Derick Thacker, Kaite Gibson, David Valenzuela and colleagues, with an educational cristino from [employer]. Review of Systems Narrative Review of Systems - Respiratory: Reports occasional dyspnea. - General: No fever no chills - Neurological: No headaches no dizziness - Ear nose throat: No sore throat no hearing difficulty no ear pain - Cardiovascular: No syncope, no chest pain, no palpitations - Gastrointestinal: No nausea vomiting or diarrhea Physical exam (Primary Care) Vital Signs: Last Vital Signs Pulse 72 05/06/25 08:57 Resp 18 05/06/25 08:57 BP 136/80 05/06/25 08:57 Pulse Ox 96 05/06/25 08:57 Oxygen Delivery Method Room Air 05/06/25 08:57 BMI result Body Mass Index 27.1 Tobacco/Smoking Status: Tobacco use Status Tobacco use date assessed 05/06/25 05/06/25 09:06 Patient Tobacco Use Status Former Tobacco user 05/06/25 09:06 Tobacco use type Cigarette 05/06/25 09:06 e-Cigarette/Vaping Use Never Used 05/06/25 09:06 Thrive Assessment: Date of Thrive Assessment Date Thrive assessed 12/19/24 05/06/25 09:06 Currently or been in a relationship where the following occur: No concerns reported Narrative Physical Exam - General: No acute distress - HEENT: No acute findings - Neck: Supple - Respiratory system: Able to talk in full sentences, no audible wheeze, not much air movment - Cardiovascular: S1-S2 - Gastrointestinal: No pain - Extremities: No new findings - 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 x3 motor intact - Skin: Normal turgor Results AMB Hemoglobin A1c AMB Hemoglobin A1c 6.1 % Last Edit by Maureen Almodovar CMA on 05/06/25 09:15 Results Reviewed Results Reviewed: Laboratory Last Values Hgb A1c (Clinic) 6.1 % (4.0-6.0) H 05/06/25 09:14 Coding Level of Care Code Est Pt Level 4 (85557) Add On Problem Visit Only Diagnoses Hypertension, essential I10 Longstanding persistent atrial fibrillation I48.11 Atrial fibrillation type: longstanding persistent Lipid disorder E78.9 Anxiety, generalized F41.1 Diabetes type 2, controlled E11.9 Panlobular emphysema J43.1 COPD type: emphysema Emphysema type: panlobular Smokers' cough J41.0 Tobacco use disorder F17.200 Time Spent (min) 30 Comment time spent in care of this patient Assessment & Plan Assessment & Plan (1) Hypertension, essential: Code(s): I10 - Essential (primary) hypertension Category: Medical (2) Atrial fibrillation: Code(s): I48.91 - Unspecified atrial fibrillation Category: Medical Qualifiers: Atrial fibrillation type: longstanding persistent Qualified Code(s): I48.11 - Longstanding persistent atrial fibrillation (3) Lipid disorder: Code(s): E78.9 - Disorder of lipoprotein metabolism, unspecified Category: Medical (4) Anxiety, generalized: Code(s): F41.1 - Generalized anxiety disorder Category: Medical (5) Diabetes type 2, controlled: Code(s): E11.9 - Type 2 diabetes mellitus without complications Category: Medical (6) COPD (chronic obstructive pulmonary disease): Code(s): J44.9 - Chronic obstructive pulmonary disease, unspecified Category: Medical Qualifiers: COPD type: emphysema Emphysema type: panlobular Qualified Code(s): J43.1 - Panlobular emphysema (7) Smokers' cough: Code(s): J41.0 - Simple chronic bronchitis Category: Medical (8) Tobacco use disorder: Code(s): F17.200 - Nicotine dependence, unspecified, uncomplicated Category: Medical Plan Problem List - Hypertension - Type 2 Diabetes Mellitus - Chronic Obstructive Pulmonary Disease - History of Atrial Fibrillation, status post ablation - Hyperlipidemia - Anxiety - Insomnia - Tobacco Use Disorder - Preventative care: Health maintenance Plan - Medication Management: Refills for trazodone and buspirone will be sent to the pharmacy. - COPD Management: Will prescribe an inhaler for COPD. - Counseling: Advised the patient that he and his should work on smoking cessation. - Coordination of Care: Advised the patient to contact his senior java web developer to ensure his medical records are sent over. - Follow-up: The patient will have repeat lab work performed before his next follow-up appointment in three months. f/u in 3 M Orders: Orders Complete Blood Count Auto Diff Today E11.69 - Type 2 diabetes mellitus with other specified complication, E78.9 - Disorder of lipoprotein metabolism, unspecified, F17.200 - Nicotine dependence, unspecified, uncomplicated, F41.1 - Generalized anxiety disorder, I10 - Essential (primary) hypertension, I48.11 - Longstanding persistent atrial fibrillation, J41.0 - Simple chronic bronchitis, J43.1 - Panlobular emphysema LDL Cholesterol Direct Today E11.69 - Type 2 diabetes mellitus with other specified complication, E78.9 - Disorder of lipoprotein metabolism, unspecified, F17.200 - Nicotine dependence, unspecified, uncomplicated, F41.1 - Generalized anxiety disorder, I10 - Essential (primary) hypertension, I48.11 - Longstanding persistent atrial fibrillation, J41.0 - Simple chronic bronchitis, J43.1 - Panlobular emphysema Vitamin B12 Today E11.69 - Type 2 diabetes mellitus with other specified complication, E78.9 - Disorder of lipoprotein metabolism, unspecified, F17.200 - Nicotine dependence, unspecified, uncomplicated, F41.1 - Generalized anxiety disorder, I10 - Essential (primary) hypertension, I48.11 - Longstanding persistent atrial fibrillation, J41.0 - Simple chronic bronchitis, J43.1 - Panlobular emphysema TSH reflex Free T4 Today . - Type 2 diabetes mellitus with other specified complication, E78.9 - Disorder of lipoprotein metabolism, unspecified, F17.200 - Nicotine dependence, unspecified, uncomplicated, F41.1 - Generalized anxiety disorder, I10 - Essential (primary) hypertension, I48.11 - Longstanding persistent atrial fibrillation, J41.0 - Simple chronic bronchitis, J43.1 - Panlobular emphysema Microalbumin, Random (w Creat) Today . - Type 2 diabetes mellitus with other specified complication, E78.9 - Disorder of lipoprotein metabolism, unspecified, F17.200 - Nicotine dependence, unspecified, uncomplicated, F41.1 - Generalized anxiety disorder, I10 - Essential (primary) hypertension, I48.11 - Longstanding persistent atrial fibrillation, J41.0 - Simple chronic bronchitis, J43.1 - Panlobular emphysema AMB Hemoglobin A1c Today Z13.9 - Encounter for screening, unspecified Comprehensive Met. Panel Today E11.69 - Type 2 diabetes mellitus with other specified complication, E78.9 - Disorder of lipoprotein metabolism, unspecified, F17.200 - Nicotine dependence, unspecified, uncomplicated, F41.1 - Generalized anxiety disorder, I10 - Essential (primary) hypertension, I48.11 - Longstanding persistent atrial fibrillation, J41.0 - Simple chronic bronchitis, J43.1 - Panlobular emphysema Hemoglobin A1c Today E11.69 - Type 2 diabetes mellitus with other specified complication, E78.9 - Disorder of lipoprotein metabolism, unspecified, F17.200 - Nicotine dependence, unspecified, uncomplicated, F41.1 - Generalized anxiety disorder, I10 - Essential (primary) hypertension, I48.11 - Longstanding persistent atrial fibrillation, J41.0 - Simple chronic bronchitis, J43.1 - Panlobular emphysema Vitamin D 25-OH (D2 and D3) Today E11.69 - Type 2 diabetes mellitus with other specified complication, E78.9 - Disorder of lipoprotein metabolism, unspecified, F17.200 - Nicotine dependence, unspecified, uncomplicated, F41.1 - Generalized anxiety disorder, I10 - Essential (primary) hypertension, I48.11 - Longstanding persistent atrial fibrillation, J41.0 - Simple chronic bronchitis, J43.1 - Panlobular emphysema Medications: Changed From buspirone 15 mg PO QID 90 tabs 0RF To buspirone 15 mg PO TID 90 tabs 0RF From trazodone 200 mg (2 x 100 mg) PO BEDTIME 16 days 32 tabs 0RF To trazodone 200 mg (2 x 100 mg) PO BEDTIME 180 tabs 0RF 90 days Refilled fluticasone propion-salmeterol 500-50 mcg/dose (Wixela Inhub) 1 inh inhalation Q12H 60 ea 3RF
== END 2025-05-06 09:19 | disposition home or self-care (01) ==
LOC: HO.HMCC 08:57
PROVIDERS: PCP Internal Medicine; Visit Provider Internal Medicine
DX: I48.11 Longstanding persistent atrial fibrillation (principal); E11.9 Type 2 diabetes mellitus without complications; J43.1 Panlobular emphysema; J41.0 Simple chronic bronchitis; I10 Essential (primary) hypertension; E78.9 Disorder of lipoprotein metabolism, unspecified; F41.1 Generalized anxiety disorder; F17.200 Nicotine dependence, unspecified, uncomplicated; Z13.9 Encounter for screening, unspecified

== ENCOUNTER → 2025-05-06 08:56 | Outpatient (BNVA) | payer MEDICARE, SELFPAY | PROVIDERS: PCP Internal Medicine; Visit Provider Internal Medicine | DX: F41.1 Generalized anxiety disorder (principal); E11.69 Type 2 diabetes mellitus with other specified complication; I10 Essential (primary) hypertension; I48.11 Longstanding persistent atrial fibrillation; J41.0 Simple chronic bronchitis; J43.9 Emphysema, unspecified; E78.9 Disorder of lipoprotein metabolism, unspecified; F17.210 Nicotine dependence, cigarettes, uncomplicated; G47.00 Insomnia, unspecified; Z79.01 Long term (current) use of anticoagulants; Z87.898 Personal history of other specified conditions; Z88.6 Allergy status to analgesic agent; Z88.8 Allergy status to other drugs, medicaments and biological substances; Z98.890 Other specified postprocedural states | CPT/HCPCS: 83036; 99212 ==